=== PATIENT | male | born 1960 | race Caucasian/White ===

== ENCOUNTER 2018-08-29 08:38 | Outpatient (REF) | payer MEDICAID, SELFPAY ==
[2018-08-29 21:03] LABS: ALT 66 U/L (12-78); AST 42 U/L (15-37); Albumin 3.7 g/dL (3.4-5.0); Alkaline Phosphatase 81 U/L (46-116); BUN 22 mg/dL (7-18); Bilirubin, Total 0.7 mg/dL (0.2-1.0); CREATININE 1.01 mg/dL (0.70-1.30); Calcium 8.6 mg/dL (8.5-10.1); Chloride 105 mmol/L (98-107); Cholesterol 251 mg/dL (50-200); Glucose 114 mg/dL (70-100); HDL Cholesterol 37 mg/dL (40-60); LDL CHOLESTEROL 105 mg/dL (<100); Potassium 4.5 mmol/L (3.5-5.1); Sodium 143 mmol/L (136-145); Total Protein 6.9 g/dL (6.4-8.2); Triglyceride 515 mg/dL (30-150)
== END 2018-08-29 08:58 ==
LOC: NCHCN 08:38
PROVIDERS: PCP Specialist/Technologist Athletic Trainer; Visit Provider Specialist/Technologist Athletic Trainer
DX: R79.89 Other specified abnormal findings of blood chemistry (principal); E78.5 Hyperlipidemia, unspecified; I10 Essential (primary) hypertension; R73.01 Impaired fasting glucose; Z00.00 Encounter for general adult medical examination without abnormal findings
CPT/HCPCS: 80053; 80061; 83721

== ENCOUNTER 2019-05-25 17:09 | Emergency (ER) | payer MEDICAID, SELFPAY ==
[2019-05-25 17:17] VITALS: BP 147/79; PULSE 74; RESP 16; TEMP 36.9; O2SAT 97
--- NOTE | 2019-05-25 17:35 | W.ED.GENAD ---
Discharge Plan Disposition Patient Disposition: HOME Condition: Stable Discharge Details Chief Complaint: RashLesion Clinical Impression: Tick-borne disease Primary Care Provider: Dom Dupree ED Provider: Lei Alvarado Home Meds and New Rx's Prescriptions: New doxycycline hyclate 100 mg capsule 100 mg PO BID 20 Days Qty: 40 RF: 0 Discharge Instructions Additional Instructions: Continue your regular medications including metoprolol and statin. Take doxycycline as prescribed for its entire course. As we discussed, this will make you more sensitive to the sun. Follow-up with regular doctor if not improving in 1 week. Return to the ER for any other acute concern. Medical Decision Making 58-year-old male noticed an engorged tick approximately 5 days ago that was removed by his partner. He was seen his primary care physician's office on Wednesday and received 200 mg of doxycycline x1 as prophylaxis for tickborne illness. He now has had a spreading rash around the area of the tick bite and subjective chills. I do feel he ought to be treated for tickborne illness with a full course of doxycycline. I discussed this with the patient and we will proceed. He understands his increased sensitivity to the sun while taking doxycycline, as well as follow-up/return precaution HPI General Mode of arrival: ambulatory. Date/Time Provider Initiated Documentation: 05/25/19 17:11. Limitations to Documentation: no limitations. Information obtained by: patient and family. History of Present Illness 58 year old M presents to the emergency department with the chief complaint of Tick bite and now rash, described as moderate, Quality is described as constant, and is localized to the back. Patient reports no radiation. Patient started experiencing this day(s) and it has been constant. No relieving factors improve symptom(s), No exacerbating factors reported . Patient notes other (Chills). Patient did receive the following treatments prior to arrival, other (Had single doxycycline 200 mg) Related Data Home Medications Medication Instructions Recorded Confirmed doxycycline hyclate 100 mg PO BID 20 Days #40 cap 05/25/19 Previous Rx's Medication Instructions Recorded doxycycline hyclate 100 mg PO BID 20 Days #40 cap 05/25/19 General Stated Complaint: RashLesion MARIA VICTORIA: 4 Review of Systems Review of Systems No other recent illness. Patient has otherwise been well. 6 systems reviewed and neg [facility] Social History Smoking/Tobacco Use Status: Former Tobacco Use Alcohol Intake: current Alcohol Intake frequency: 3 or more drinks per day Substance use type: does not use Do you feel safe at home: Yes Exam Narrative Exam Narrative: GEN: awake, alert, oriented 3. Pleasant, well groomed, interactive. HEAD: Normocephalic, atraumatic ENT: Mucous membranes moist, oropharynx unremarkable, External ear exam unremarkable EYES: PERRL, EOMI NECK: Full ROM, no CRISTINA, no menigismus CHEST/RESP: Nontender, clear to auscultation bilateral, no wheeze/rhonchi/rales CARDIOVASCULAR: RRR, no murmur, rub mery. 2+ Rad pulse bilateral Back: The left posterior thorax has a erythematous blanching rash surrounding area of probable insect bite, no retained foreign body EXT: Full ROM, no edema, no rash Neuro: Grossly normal neurologic exam, conversant, interactive. Psych: Speech fluent, thoughts congruent, affect normal Course Vital Signs Temperature 36.9 C 05/25/19 17:17 Pulse 74 05/25/19 17:17 Respiratory Rate 16 05/25/19 17:17 Blood Pressure 147/79 H 05/25/19 17:17 Pulse Oximetry 97 05/25/19 17:17 Temperature 36.9 C 05/25/19 17:17 Temperature Source Skin 05/25/19 17:17 Pulse 74 05/25/19 17:17 Respiratory Rate 16 05/25/19 17:17 Respiratory Effort 05/25/19 17:17 Blood Pressure 147/79 H 05/25/19 17:17 Blood Pressure Position Sitting 05/25/19 17:17 Pulse Oximetry 97 05/25/19 17:17 Oxygen Delivery Method Room Air 05/25/19 17:17 Oxygen Flow Rate 0 05/25/19 17:17
[2019-05-25] MEDS: Doxycycline Hyclate 100 MG CAP PO (17:44)
[2019-05-25 17:50] VITALS: BP 147/79; PULSE 74; RESP 16; TEMP 36.9; O2SAT 97
== END 2019-05-25 17:50 | disposition home or self-care (01) ==
PROVIDERS: Emergency Provider Emergency Medicine; PCP Physician Assistant Medical
DX: S20.462A Insect bite (nonvenomous) of left back wall of thorax, initial encounter (principal); W57.XXXA Bitten or stung by nonvenomous insect and other nonvenomous arthropods, initial encounter
CPT/HCPCS: 99283

== ENCOUNTER 2019-07-13 11:26 | Outpatient (REF) | payer MEDICAID, SELFPAY ==
[2019-07-13 21:36] LABS: Mean Corp. HGB Concentration 33.3 g/dL (32.0-36.0); Mean Corpuscular Hemoglobin 32.1 pg (27.0-33.0); Mean Corpuscular Volume 96.4 fL (80-95); Mean Platelet Volume 9.7 fL (8.0-11.0); Platelet Count 293 x1000/uL (130-400); RBC 4.67 m/cumm (4.50-6.00); RBC Distribution Width 13.4 % (11.8-14.1); White Blood Cell Count 6.93 k/cumm (4.4-10.8)
[2019-07-13 21:48] LABS: ALT 73 U/L (16-63); AST 44 U/L (15-37); Albumin 3.7 g/dL (3.4-5.0); Alkaline Phosphatase 89 U/L (46-116); Anion Gap 9.2 mmol/L (3-11); BUN 17 mg/dL (7-18); Bilirubin, Total 1.2 mg/dL (0.2-1.0); C-Reactive Protein 0.87 mg/dL (0.0-0.3); CO2 27.8 mmol/L (21.0-32.0); Calcium 8.9 mg/dL (8.5-10.1); Chloride 105 mmol/L (98-107); Glucose 105 mg/dL (70-100); Potassium 4.7 mmol/L (3.5-5.1); Sodium 142 mmol/L (136-145); TSH (W/Ref FT4) 1.62 uIU/mL (0.36-3.74); Total Protein 7.4 g/dL (6.4-8.2); Uric Acid 6.4 mg/dL (3.5-7.2)
[2019-07-16 09:40] LABS: Anaplasma phagocytophilum Negative (Negative); B. miyamotoi PCR Negative (Negative); Babesia divergens/MO-1 Negative (Negative); Babesia duncani Negative (Negative); Babesia microti Negative (Negative); Ehrlichia chaffeensis Negative (Negative); Ehrlichia ewingii/canis Negative (Negative); Ehrlichia muris eauclairensis Negative (Negative)
[2019-07-17 11:07] LABS: Lyme Ab w Rflx to Lyme Confirm Negative
[2019-07-17 11:33] LABS: Hepatitis C Ab w Rflx HCV PCR Negative (NEGAT)
== END 2019-07-13 11:46 ==
LOC: NCHCN 11:26
PROVIDERS: PCP Physician Assistant Medical; Visit Provider Family Medicine
DX: E78.5 Hyperlipidemia, unspecified (principal); I10 Essential (primary) hypertension; R79.89 Other specified abnormal findings of blood chemistry; R61 Generalized hyperhidrosis; M79.676 Pain in unspecified toe(s); W57.XXXA Bitten or stung by nonvenomous insect and other nonvenomous arthropods, initial encounter; T14.8XXA Other injury of unspecified body region, initial encounter; R74.8 Abnormal levels of other serum enzymes; R73.01 Impaired fasting glucose; Z00.00 Encounter for general adult medical examination without abnormal findings
CPT/HCPCS: 80053; 85027; 86803; 87798; 83036; 84443; 84550; 86140; 86618

== ENCOUNTER 2019-08-07 00:25 | Outpatient (CLI) | payer MEDICAID, SELFPAY ==
--- NOTE | 2019-08-07 07:00 | DI.US_ITS ---
EXAM: US ABDOMEN CLINICAL HISTORY: ELEVATED LFT'S,R79.89. TECHNIQUE: Ultrasound performed using standard protocol. FINDINGS: The proximal portion of the aorta is obscured due to bowel gas. Distal abdominal aorta measures 3.2 x 3.7 cm. There is no evidence of dissection. The liver is mildly enlarged and is echogenic consiste nt with fatty infiltration. The gallbladder wall is unremarkable. There are no stones or ductal dila tation. The pancreas is intact. The spleen is top limits of normal in size. The kidneys are unremar kable. There is no evidence of free fluid or an abdominal mass. IMPRESSION: Ectasia of the distal abdominal aorta is demonstrated with a maximal transverse diameter of 3.7 cm. F atty liver is noted.
== END 2019-08-07 00:45 ==
PROVIDERS: PCP Physician Assistant Medical; Visit Provider Physician Assistant Medical
DX: K76.0 Fatty (change of) liver, not elsewhere classified (principal); R79.89 Other specified abnormal findings of blood chemistry; I77.811 Abdominal aortic ectasia
CPT/HCPCS: 76700

== ENCOUNTER 2020-06-25 17:42 | Outpatient (REF) | payer MEDICAID, SELFPAY ==
[2020-06-25 20:37] LABS: Abs Immature Grans 0.04 10^3/uL (0.0-0.06); Absolute Basophil Count 0.04 10^3/uL (0.0-0.2); Absolute Eosinophil Count 0.18 10^3/uL (0.0-0.7); Absolute Lymphocyte Count 0.73 10^3/uL (1.2-3.4); Absolute Monocyte Count 0.46 10^3/uL (0.1-0.8); Basophils % 0.6; Eosinophils % 2.5; HCT 42.8 % (40.0-50.0); HGB 13.7 g/dL (13.5-17.5); Immature Grans % 0.6; Lymphocytes % 10.1; MCH 31.2 pg (27.0-33.0); MCV 97.5 fL (80-95); Monocytes % 6.3; Neutrophils % 79.9; Nucleated RBC 0 %; Platelet Count 306 10^3/uL (130-400); RBC 4.39 10^6/uL (4.36-5.78); RDW 12.8 % (11.8-14.1); RDW-SD 45.5 fL; WBC 7.25 10^3/uL (4.4-10.8)
[2020-06-25 20:55] LABS: ALT 93 U/L (16-63); AST 55 U/L (15-37); Albumin 3.4 g/dL (3.4-5.0); Alkaline Phosphatase 99 U/L (46-116); Anion Gap 8.5 mmol/L (3-11); BUN 22 mg/dL (7-18); Bilirubin, Total 0.7 mg/dL (0.2-1.0); CO2 27.5 mmol/L (21.0-32.0); CREATININE 1.23 mg/dL (0.70-1.30); Calcium 9.1 mg/dL (8.5-10.1); Chloride 106 mmol/L (98-107); Glucose 115 mg/dL (74-106); Potassium 4.5 mmol/L (3.5-5.1); Sodium 142 mmol/L (136-145); Total Protein 6.7 g/dL (6.4-8.2)
[2020-06-25 21:27] LABS: ESR 32 mm/hr (1-20)
[2020-06-27 11:05] LABS: Lyme Ab w Rflx to Lyme Confirm Positive (Negative)
[2020-06-27 19:57] LABS: Anaplasma phagocytophilum Negative (Negative); B. miyamotoi PCR Negative (Negative); Babesia divergens/MO-1 Negative (Negative); Babesia duncani Negative (Negative); Babesia microti Negative (Negative); Ehrlichia chaffeensis Negative (Negative); Ehrlichia ewingii/canis Negative (Negative); Ehrlichia muris eauclairensis Negative (Negative)
[2020-06-28 14:44] LABS: IgG Band(s) p41; IgG Immunoblot Negative (Negative); IgM Band(s) p41; IgM Immunoblot Positive (Negative)
== END 2020-06-25 18:02 ==
LOC: NCHCN 17:42
PROVIDERS: PCP Physician Assistant Medical; Visit Provider Physician Assistant Medical
DX: M25.50 Pain in unspecified joint (principal)
CPT/HCPCS: 80053; 85652; 86617; 87798; 83036; 85025; 86618

== ENCOUNTER 2020-07-30 09:08 | Outpatient (REF) | payer MEDICAID, SELFPAY ==
[2020-08-02 17:34] LABS: Patient Race White; SARS-CoV-2 RNA Undetected (Undetected); SARS-CoV-2 Specimen Source Nasal
== END 2020-07-30 09:28 ==
LOC: NCHCN 09:08
PROVIDERS: PCP Physician Assistant Medical; Visit Provider Physician Assistant Medical
DX: R05 Cough (principal)
CPT/HCPCS: U0003

== ENCOUNTER 2020-08-23 04:06 | Outpatient (CLI) | payer MEDICAID, SELFPAY ==
--- NOTE | 2020-08-23 | DI.US_ITS ---
EXAM: US AAA DIAGNOSTIC CLINICAL HISTORY: F/U AAA,I71.4 TECHNIQUE: Ultrasound performed using standard protocol. COMPARISON: US US ABDOMEN from 08/07/2019 FINDINGS: Limited abdominal ultrasound was performed for evaluation of the abdominal aorta. The proximal aorta is incompletely visualized due to overlying bowel gas. There is an aneurysm which appears to be inf rarenal with maximal dimensions about 33 x 34 millimeters AP and transverse diameter. Right and left common iliac arteries are within normal limits in diameter at 12 and 11 millimeters respectively. No periaortic fluid collection seen. IMPRESSION: 34 millimeter in diameter infrarenal abdominal aortic aneurysm. DATA REPOSITORY:
== END 2020-08-23 04:26 ==
PROVIDERS: PCP Physician Assistant Medical; Visit Provider Physician Assistant Medical
DX: I71.4 Abdominal aortic aneurysm, without rupture (principal)
CPT/HCPCS: 76775

== ENCOUNTER 2020-09-13 08:37 | Outpatient (REF) | payer MEDICAID, SELFPAY ==
[2020-09-13 19:35] LABS: ALT 59 U/L (16-63); AST 31 U/L (15-37); Albumin 3.7 g/dL (3.4-5.0); Alkaline Phosphatase 84 U/L (46-116); Anion Gap 8.8 mmol/L (3-11); BUN 23 mg/dL (7-18); Bilirubin, Total 0.7 mg/dL (0.2-1.0); CO2 28.2 mmol/L (21.0-32.0); CREATININE 1.07 mg/dL (0.70-1.30); Calculated LDL 130 mg/dL (<100); Chloride 102 mmol/L (98-107); Cholesterol 225 mg/dL (<200); Glucose 114 mg/dL (74-106); HDL Cholesterol 55 mg/dL (40-60); Sodium 139 mmol/L (136-145); Total Protein 7.5 g/dL (6.4-8.2); Triglyceride 201 mg/dL (<150)
== END 2020-09-13 08:57 ==
LOC: NCHCN 08:37
PROVIDERS: PCP Physician Assistant Medical; Visit Provider Physician Assistant Medical
DX: R79.89 Other specified abnormal findings of blood chemistry (principal); J44.9 Chronic obstructive pulmonary disease, unspecified; R73.01 Impaired fasting glucose; E78.5 Hyperlipidemia, unspecified
CPT/HCPCS: 80053; 80061; 83036

== ENCOUNTER 2020-10-02 20:13 | Outpatient (REF) | payer MEDICAID, SELFPAY ==
[2020-10-02 20:27] LABS: Anion Gap 7.7 mmol/L (3-11); BUN 26 mg/dL (7-18); CO2 26.3 mmol/L (21.0-32.0); CREATININE 1.06 mg/dL (0.70-1.30); Calcium 9.1 mg/dL (8.5-10.1); Chloride 104 mmol/L (98-107); Glucose 102 mg/dL (74-106); Potassium 4.3 mmol/L (3.5-5.1); Sodium 138 mmol/L (136-145)
== END 2020-10-02 20:33 ==
LOC: NCHCN 20:13
PROVIDERS: PCP Physician Assistant Medical; Visit Provider Physician Assistant Medical
DX: I10 Essential (primary) hypertension (principal)
CPT/HCPCS: 80048

== ENCOUNTER 2021-01-15 07:24 | Day surgery (SDC) | payer MEDICAID, SELFPAY ==
--- NOTE | 2021-01-15 06:43 | W.PREOPHP ---
Date of service: 01/15/21 Time of Service: 08:24 Assessment and Plan Assessment and plan (1) Encounter for screening colonoscopy: Status: Acute Assessment and plan: The patient is here for Colonoscopy pre-op. His last screening was in 2009 and was unremarkable. He has no family history of colon cancer. He has not had any bowel habit changes. -Discussed colonoscopy bowel prep as well as the procedure. Discussed possible complications of the procedure to include bleeding, pain, perforation, missed small lesion/polyp, sore throat, aspiration and adverse reaction to the medications. Questions were answered to patient?s satisfaction. No guarantees were implied or given. History of Present Illness Narrative: 60 y/o male with history of ETOH abuse, infrarenal AAA (34mm) and HTN presents for colonoscopy screening pre-op. His last screening was in 2009, which was unremarkable. He denies a family history of colon cancer. He denies any changes in bowel habits including bloody or black tarry stools, abdominal pain, diarrhea or constipation. He denies constitutional symptoms. Denies use of marijuana or any other recreational or illegal drugs. He denies chest pain, palpitations, dyspnea or dyspnea with exertion. Uses his inhaler once a day, with good effect. 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 He denies prior history or family history of adverse reactions or complications with anesthesia. The patient denies any history of stroke, [place], seizures, bleeding or clotting disorders. He denies having any implanted metal in his body. Patient describes significant stressors in his personal life. One of his daughters is fighting addiction and he and his currently are fostering 2 of their grandchildren ages 13 y/o and 19 months. They are currently going through court hearings regarding whether the children will return to the home of his daughter, which is weighing on him. There have been no changes in his health since he was seen in the office Review of Systems Constitutional Constitutional: Denies fever(s), Denies headache(s) and Denies weight loss Eyes Eyes: Denies change in vision ENT Ears, Nose, Mouth, and Throat: Denies change in voice and Denies headache(s) Cardiovascular Cardiovascular: Denies chest pain, Denies chest pain at rest, Denies irregular heart rhythm, Denies dyspnea and Denies dyspnea on exertion Respiratory Respiratory: Denies cough, Denies dyspnea and Denies dyspnea on exertion Gastrointestinal Gastrointestinal: Reports as per HPI Genitourinary Genitourinary: Denies dysuria, Denies urinary incontinence and Denies urinary urgency Neurologic Neurologic: Denies headache(s) Endocrine Endocrine: Reports system reviewed and no additional complaints, except as documented Hematologic/Lymphatic Hematologic/Lymphatic: Denies easy bruising and Denies lymphadenopathy [facility] Medical History AAA (abdominal aortic aneurysm) recent US- 3.3 cm infrarenal Chronic rhinitis COPD (chronic obstructive pulmonary disease) Cough Elevated LFTs ETOH abuse Family history of substance abuse Hyperlipidemia Hypertension Impaired fasting glucose Lyme disease Medial epicondylitis of right elbow Shoulder pain, bilateral Surgical History S/P colonoscopy (~2009) S/P left knee arthroscopy Social History Smoking/Tobacco Use Status: Former Tobacco Use Quit Date: 11/15/12 Smoking risk assessment performed?: Yes Alcohol Intake: current Alcohol Intake frequency: 3 or more drinks per day Alcohol type: hard liquor Counseling given: Yes Counseling provided: provider counseling Substance use type: does not use Details: alcohol: t-2, 3 drinks Do you feel safe at home: Yes Do you feel safe in your relationship?: Yes Meds Home Medications and Allergies Allergies Allergy/AdvReac Type Severity Reaction Status Date / Time No Known Allergies Allergy Verified 01/15/21 07:42 Home Medications Medication Instructions Recorded Confirmed Type albuterol sulfate 90 mcg/actuation 2 inh INHALATION Q6H 09/06/20 01/14/21 History breath activated powder inhaler,sensor aspirin 81 mg tablet,delayed 81 mg PO DAILY 09/06/20 01/15/21 History release atorvastatin 40 mg tablet 40 mg PO QHS 09/06/20 01/15/21 History indomethacin 25 mg capsule 25 mg PO TID 09/06/20 01/15/21 History metoprolol succinate 50 mg 50 mg PO DAILY 09/06/20 01/15/21 History tablet,extended release 24 hr naloxone 4 mg/actuation nasal spray 4 mg INTRANASAL Q2M PRN 09/06/20 01/15/21 History bisacodyl 5 mg tablet,delayed 5 mg PO ONCE #4 tab 12/06/20 01/15/21 Rx release polyethylene glycol 3350 17 238 g PO ONCE #238 g 12/06/20 01/15/21 Rx gram/dose oral powder melatonin 10 mg PO HS 01/14/21 01/15/21 History Exam Resp Effort & Inspection: normal respiratory effort Auscultation: clear to auscultation bilaterally Cardio Rate: regular rate Rhythm: regular rhythm Heart Sounds: no gallops, no murmurs and no rubs GI Palpation: soft and nontender
--- NOTE | 2021-01-15 06:50 | W.COLOREPORT ---
Date of service: 01/15/21 Time of Service: 09:01 Colonoscopy Report Date of procedure: 01/15/21 Pre-op diagnosis general: Colon Cancer Screening Post-op diagnosis procedure note: other (polyp) Procedure: Colonoscopy with polypectomy Surgeon: Louise Sanford Anesthesia proc note operative: other (General/ ASA 2/Anjum Acevedo CRNA) Estimated blood loss (mL): 3 Pathology: other (descending colon polyp) Complications: None Disposition: same day Indications: The patient is here for Colonoscopy pre-op. His last screening was in 2009 and was unremarkable. He has no family history of colon cancer. He has not had any bowel habit changes. -Discussed colonoscopy bowel prep as well as the procedure. Discussed possible complications of the procedure to include bleeding, pain, perforation, missed small lesion/polyp, sore throat, aspiration and adverse reaction to the medications. Questions were answered to patient?s satisfaction. No guarantees were implied or given. Prep: Miralax/Dulcolax Procedure Start Time: 08:33 Procedure End Time: 08:55 Retraction Time: 17 minutes Findings: One small polyp in the descending colon. (<1 cm) Procedure Description: After informed consent was obtained the patient was taken to the procedure room and placed in a left decubitous position. Monitors were applied and a time out was done. The patients name, date of , procedure, allergies to medications and metal in their body was reviewed. The patient was then sedated. Once sedated and comfortable a rectal exam was done. External exam was normal. Internal exam revealed a normal sphincter tone and no palpable masses. The prostate felt smooth. The scope was then introduced and retro-flexed. No internal hemorrhoids, polyps or masses were identified on retro-flexion. The scope was then advanced to the cecum without difficulty. The ileocecal valve and appendiceal orifice were identified. The prep was adequate. The scope was then slowly retracted over 17 minutes back into the rectum. Polyps were removed with cold forceps in the descending colon. There was no diverticulosis noted. The scope was removed and the patient was woken up and taken back to Same day surgery in stable condition. The patient tolerated the procedure well and there were no immediate complications. Follow up: The patient should follow up in 5 years unless they develop changes in bowel habits or other new gastrointestinal complaints.
[2021-01-15 07:38] VITALS: BP 106/72; PULSE 99; RESP 18; TEMP 36.9; O2SAT 98
[2021-01-15] MEDS: Lactated Ringers 1,000 ML 80 ML IV (08:00)
--- NOTE | 2021-01-15 08:24 | W.PM.DSUDISC ---
Discharge Plan Disposition Patient Disposition: HOME Condition: Good Discharge Details Reason For Visit: Colonoscopy Attending Provider: Louise Sanford Primary Care Provider: Dom Dupree Home Meds and New Rx's Prescriptions: Continued indomethacin 25 mg capsule 25 mg PO TID RF: 0 aspirin [Adult Aspirin Regimen] 81 mg tablet,delayed release (DR/EC) 81 mg PO DAILY RF: 0 metoprolol succinate 50 mg tablet extended release 24 hr 50 mg PO DAILY RF: 0 atorvastatin [Lipitor] 40 mg tablet 40 mg PO QHS RF: 0 Proair Digihaler 90 mcg/actuation aero powdr breath act w/sensor 2 inh inhalation Q6H RF: 0 Narcan 4 mg/actuation spray,non-aerosol 4 mg intranasal Q2M PRNRF: 0 melatonin 10 mg Tablet 10 mg PO HS RF: 0 Discontinued polyethylene glycol 3350 17 gram/dose powder 238 g PO ONCE Qty: 238 RF: 0 bisacodyl [Dulcolax (bisacodyl)] 5 mg tablet,delayed release (DR/EC) 5 mg PO ONCE Qty: 4 RF: 0 Discharge Instructions Instructions: Colorectal Polyps (DC) Additional Instructions: Findings: 1 small polyp Follow up: 5 years Please call if you develop: fevers >101.5 Nausea or Vomiting Abdominal pain that is not transient DAY SURGERY UNIT POST ENDOSCOPY INSTRUCTIONS 1. Because there will be medication in your system for the next 24 hours, you may feel a little sleepy. Your coordination will be affected. Therefore: a. Do not drive or operate dangerous equipment for 24 hours. b. Do not drink alcohol beverages for 24 hours (not even beer). c. Plan to go home and rest for the day. 2. Generally there are no restrictions on your activity after a day or so has gone by, but you may feel a bit fatigued for a few days. 3 After you arrive home you may have a light meal and return to a normal diet as you can tolerate it without feeling sick to your stomach. 4. After surgery, you may feel pain or discomfort. This should be only transient, but if it persists please contact your doctor. 5. If there are any questions regarding the findings of your procedure, please feel free to contact your doctor. 6. If you are unable to contact your doctor with a problem, contact the hospital at [phone]. 7. Continue all your regular medications unless directed otherwise. I understand the above instructions and have no questions. Signature of Patient or Responsible Adult Escort Date/Time Name of Responsible Adult Escort Signature of Nurse Date/Time Activity:: Activity as Tolerated Diet:: As Tolerated Discharge Orders Discharge Orders: Discharge Order (Routine); Ordered 01/15/21 Ordered By: Louise Sanford DS: Diagnosis Discharge Diagnosis (1) Encounter for screening colonoscopy: Status: Acute
--- NOTE | 2021-01-15 08:49 | BOWEL_PTH ---
PATIENT: Tristan Yan LOC: [facility] U#:[id number] AGE/SX: 60/M ROOM: RE01/15/[address]: Louise Sanford MD : 1960 BED: DIS: 01/15/2021 SPEC #: [id number] RECD: 01/15/21 12:54 STATUS: TRISHA REMary #: [id number] ETHAN: 01/15/21 08:[address]: Louise Sanford DEPT: Surgical Specimen RECD BY: Emelina Estrada ENTERED: 01/15/21 12:54 SP TYPE: Bowel OTHR DR: Dom Dupree Tissues: 1 - BIOPSY BOWEL Procedures: GROSS AND MICRO LEVEL 4 Comments: [id number]
[2021-01-15 09:25] VITALS: BP 106/69; PULSE 84; RESP 18; TEMP 36.1; O2SAT 97
== END 2021-01-15 09:43 | disposition home or self-care (01) ==
PROVIDERS: PCP Physician Assistant Medical; Visit Provider Surgery
PROC: 0DJD8ZZ Inspection of Lower Intestinal Tract, Via Natural or Artificial Opening Endoscopic (ICD-10-PCS; CPT 45378; principal; 2021-01-15 09:15)
DX: Z12.11 Encounter for screening for malignant neoplasm of colon (principal); D12.4 Benign neoplasm of descending colon; I10 Essential (primary) hypertension; J44.9 Chronic obstructive pulmonary disease, unspecified; F10.10 Alcohol abuse, uncomplicated
CPT/HCPCS: 45380; 88305; NC; J2001

== ENCOUNTER 2021-08-28 16:13 | Outpatient (REF) | payer MEDICAID, SELFPAY ==
[2021-08-28 20:45] LABS: Abs Immature Grans 0.06 10^3/uL (0.0-0.06); Absolute Basophil Count 0.07 10^3/uL (0.0-0.2); Absolute Eosinophil Count 0.19 10^3/uL (0.0-0.7); Absolute Lymphocyte Count 1.78 10^3/uL (1.2-3.4); Absolute Monocyte Count 0.78 10^3/uL (0.1-0.8); Absolute Neutrophil Count 6.03 10^3/uL (1.2-6.7); Basophils % 0.8; Eosinophils % 2.1; HCT 38.6 % (40.0-50.0); HGB 12.3 g/dL (13.5-17.5); Immature Grans % 0.7; MCH 31.7 pg (27.0-33.0); MCHC 31.9 % (32.0-36.0); MCV 99.5 fL (80-95); MPV 9.4 fL (8.0-11.0); Monocytes % 8.8; Neutrophils % 67.6; Nucleated RBC 0 %; Platelet Count 272 10^3/uL (130-400); RBC 3.88 10^6/uL (4.36-5.78); RDW 14.3 % (11.8-14.1); RDW-SD 52.1 fL; WBC 8.91 10^3/uL (4.4-10.8)
[2021-08-28 21:05] LABS: ALT 101 U/L (16-63); AST 54 U/L (15-37); Albumin 3.6 g/dL (3.4-5.0); Alkaline Phosphatase 84 U/L (46-116); Anion Gap 8.7 mmol/L (3-11); BUN 51 mg/dL (7-18); Bilirubin, Total 0.7 mg/dL (0.2-1.0); CO2 25.3 mmol/L (21.0-32.0); CREATININE 3.1 mg/dL (0.70-1.30); Calcium 9.1 mg/dL (8.5-10.1); Chloride 110 mmol/L (98-107); Estimated GFR 20.52 (mL/min/1.73m2); Glucose 125 mg/dL (74-106); Potassium 5.1 mmol/L (3.5-5.1); Sodium 144 mmol/L (136-145)
== END 2021-08-28 16:14 | disposition home or self-care (01) ==
LOC: LBN 16:13
PROVIDERS: PCP Physician Assistant Medical; Visit Provider Physician Assistant Medical
DX: R19.7 Diarrhea, unspecified (principal)
CPT/HCPCS: 80053; 85025

== ENCOUNTER 2021-08-29 08:24 | Outpatient (REF) | payer MEDICAID, SELFPAY ==
[2021-08-29 22:59] LABS: Campylobacter PCR Negative (Negative); Salmonella PCR Negative (Negative); Shiga Toxin PCR Negative (Negative); Shigella/Enteroinvasive Ecoli Negative (Negative)
== END 2021-08-29 08:25 | disposition home or self-care (01) ==
LOC: LBN 08:24
PROVIDERS: PCP Physician Assistant Medical; Visit Provider Physician Assistant Medical
DX: R19.7 Diarrhea, unspecified (principal)
CPT/HCPCS: 87329; 87493; 87505; 83630; 87177

== ENCOUNTER 2021-08-29 10:52 | Emergency (ER) | payer MEDICAID, SELFPAY ==
[2021-08-29] VITALS (39 sets, daily range): BP systolic 120–145; BP diastolic 26–101; PULSE 64–83; RESP 14–25; TEMP 36.7–36.8; O2SAT 97–100
--- NOTE | 2021-08-29 11:33 | DI.CT_ITS ---
Exam(s) CT ABDOMEN PELVIS WO EXAM: CT ABDOMEN PELVIS WO CLINICAL HISTORY: renal failure, abdominal pain. TECHNIQUE: Imaging Protocol: Axial computed tomography images with coronal and sagittal reformatted images were created and reviewed. Oral: no COMPARISON: US US AAA DIAGNOSTIC from 08/23/2020 US US AAA DIAGNOSTIC from 08/23/2020 FINDINGS: ABDOMEN: Lung Bases: Normal where visualized. Coronary artery calcifications. Liver: Normal density. No measurable mass. Gallbladder and biliary tract: No radiodense calculus or dilation. Pancreas: Normal density, no abnormal calcifications or inflammatory process. Spleen: Normal. Kidneys: Normal size, contour and axis. No radiodense stones or obstructive uropathy. No masses seen. Adrenal glands: No masses seen. Lymph nodes: Within normal limits. Abdominal Aorta: 3.8 cm aneurysm, stable. PELVIS: Bladder: Nearly empty, not well evaluated. Bowel: Appendix normal. No obstruction or bowel wall thickening. Normal quantity of stool. Peritoneal cavity: No ascites, collection or mesenteric inflammatory response. Reproductive organs: Within normal limits. Bones: Unremarkable for age. IMPRESSION: Unremarkable noncontrast CT scan of the abdomen and pelvis. RADIATION DOSE DELIVERED: 1,176.11mGy.cm Total DLP DATA REPOSITORY: All CT scans at this facility are submitted to the National Radiology Data Registry (NRDR) Dose Index Registry (DIR) with the [employer] (A[employer]). RADIATION OPTIMIZATION: All CT scans at this facility use at least one of these dose optimization te chniques: automated exposure control; mA and/or kV adjustment per patient size (includes targeted exa ms where dose is matched to clinical indication); or iterative reconstruction.
[2021-08-29 11:51] LABS: Abs Immature Grans 0.04 10^3/uL (0.0-0.06); Absolute Basophil Count 0.05 10^3/uL (0.0-0.2); Absolute Eosinophil Count 0.22 10^3/uL (0.0-0.7); Absolute Lymphocyte Count 1.75 10^3/uL (1.2-3.4); Absolute Monocyte Count 0.72 10^3/uL (0.1-0.8); Absolute Neutrophil Count 5.41 10^3/uL (1.2-6.7); Basophils % 0.6; Eosinophils % 2.7; HCT 38.9 % (40.0-50.0); HGB 12.5 g/dL (13.5-17.5); Immature Grans % 0.5; Lymphocytes % 21.4; MCH 32.1 pg (27.0-33.0); MCHC 32.1 % (32.0-36.0); MPV 8.8 fL (8.0-11.0); Monocytes % 8.8; Nucleated RBC 0 %; Platelet Count 257 10^3/uL (130-400); RBC 3.89 10^6/uL (4.36-5.78); RDW 14.3 % (11.8-14.1); RDW-SD 52.2 fL; WBC 8.19 10^3/uL (4.4-10.8)
[2021-08-29] MEDS: Normal Saline 1,000 ML 1000 ML IV ×2 (11:55→13:57)
[2021-08-29 11:59] LABS: Bilirubin Negative (Negative); Blood Negative (Negative); Clarity Clear (Clear); Glucose 100 mg/dL (Negative); Ketones Negative (Negative); Leukocyte Esterase Negative (Negative); Nitrite Negative (Negative); Specific Gravity >= 1.030 (1.005-1.025); Urobilinogen 0.2 EU/dL (Up TO 0.2); pH 5.5 (5-8)
[2021-08-29 12:08] LABS: Bacteria Negative HPF (Negative); C & S Indicated? No; Crystals Few Calcium Oxalate HPF (Negative); Epithelial Cells Few HPF (Negative); Mucus Trace (Negative); RBC Negative HPF (0-2); WBC Negative HPF (0-5)
--- NOTE | 2021-08-29 12:30 | RT.EKG_ITS ---
APPROVED REPORT Exam: Resting ECG Reason for Exam: hyperkalemia Patient Location: E HR:67 bpm ECG Measurements Heart Rate 67 AXIS MA 156 P 17 QRSd 87 QRS 28 QT 383 T 33 QTc 405 Conclusion Sinus rhythm...normal P axis, V-rate 60- 99 peaked Ts
[2021-08-29 12:37] LABS: ALT 82 U/L (16-63); AST 43 U/L (15-37); Alkaline Phosphatase 76 U/L (46-116); BUN 51 mg/dL (7-18); Bilirubin, Total 0.7 mg/dL (0.2-1.0); CREATININE 2.2 mg/dL (0.70-1.30); Calcium 8.2 mg/dL (8.5-10.1); Chloride 110 mmol/L (98-107); Creatine Kinase 74 U/L (39-308); Estimated GFR 30.48 (mL/min/1.73m2); Glucose 96 mg/dL (74-106); Magnesium 2.1 mg/dL (1.8-2.4); Potassium 5.7 mmol/L (3.5-5.1); Sodium 142 mmol/L (136-145); Total Protein 6.5 g/dL (6.4-8.2)
--- NOTE | 2021-08-29 13:42 | W.ED.GENAD ---
Discharge Plan Disposition Patient Disposition: HOME Condition: Improving Discharge Details Clinical Impression: Diarrhea, Hyperkalemia, Acute kidney injury Primary Care Provider: Dom Dupree ED Provider: Marivel Bobby Home Meds and New Rx's Prescriptions: New dicyclomine 20 mg tablet 20 mg PO QID Qty: 14 RF: 0 Continued indomethacin 25 mg capsule 25 mg PO TID RF: 0 aspirin [Adult Aspirin Regimen] 81 mg tablet,delayed release (DR/EC) 81 mg PO DAILY RF: 0 metoprolol succinate 50 mg tablet extended release 24 hr 50 mg PO DAILY RF: 0 atorvastatin [Lipitor] 40 mg tablet 40 mg PO QHS RF: 0 Proair Digihaler 90 mcg/actuation aero powdr breath act w/sensor 2 inh inhalation Q6H RF: 0 Narcan 4 mg/actuation spray,non-aerosol 4 mg intranasal Q2M PRNRF: 0 melatonin 10 mg Tablet 10 mg PO HS RF: 0 Discharge Instructions Instructions: Acute Diarrhea (ED) Additional Instructions: Your labs are improving today. Please continue to encourage hydration. Please stick with a easy digest liquid diet for the time being. I would like you to follow-up with your primary care and have repeat labs on Wednesday. Call Wednesday morning to schedule follow-up appointment. I prescribed Bentyl to help with your recurrent diarrhea and cramping. Please take as prescribed, this has been sent to your pharmacy. If you develop fever/chills, increased pain, inability stay hydrated, or other new/worsening symptoms please seek care urgently once again. Referrals: Dom Dupree PA [Primary Care Provider] - Discharge Data Discharge Date/Time-TO BE ENTERED AT DEPARTURE: 08/29/21 18:00 Medical Decision Making <ANAM Garcia - Last Filed: 08/30/21 16:53> Patient appears well, he is alert and oriented, his vitals are stable He does of hyper T waves on EKG His potassium is 5.7 and his creatinine is 2.2, creatinine decreased from 3.1 yesterday Potassium increased to 5.[address] David's of abdomen and pelvis not show acute abnormality Patient was given IV calcium gluconate, IV insulin, and has had repeat glucose test since that time of all been within normal limits I did discuss the case with the hospitalist to admit the patient, however Dr. Mehta asked that we please repeat a BMP as she does not feel this patient warrants admission at this time unless his labs do not correct She will be transferred to Marivel Bobby PA-C pending repeat BMP at 1600 and repeat EKG Patient has formed stool on his stool specimen that she submitted prior to emergency room evaluation therefore C. difficile was not ordered, the remainder of his testing is pending Medical Records Medical records reviewed: Yes I reviewed the patient's medical records. Lab Data Lab results reviewed: Yes I reviewed the patient's lab results. <ANAM Zuluaga - Last Filed: 08/29/21 17:42> Care transition myself from Emelina Martell PA-C. Please see her initial note regarding history, presentation and exam. In brief, patient is a pleasant 61-year-old male presenting today after having intermittent diarrhea x1 month. Patient was seen in urgent care yesterday at which time he was found to have an acute kidney injury. At the time he came in earlier today, patient potassium was elevated at 5.7 and he did have hyperacute T waves on his initial EKG. His initial creatinine was 2.2. Plan initially was for admission. However, after further consultation they decided to hold off on admission for this time, hydrate the patient, treat the hyperkalemia and reassess. If labs are improving, plan is for patient to be discharged home with close follow-up. At the time I assumed care, BMP pending. Repeat BMP reviewed by myself. Potassium normal at 4.5. Creatinine is improving at 1.9. Patient continues to be asymptomatic. Discussed the findings with the patient. As his primary concern seems to be this intermittent diarrhea and intermittent cramping, will treat with Bentyl. Advised they continue to encourage hydration. I have asked that he stick with a liquid diet to try and allow for some rest of his bowels. He has not had any bowel movements since being here. Has not had any cramping since being here. Patient is questioning if some of this may be associated with increased stress at home and at work. Strict return precautions were discussed. Patient is in agreement with discharge home, feels safe being at home and following this plan. I advised that they contact primary care Wednesday morning to schedule repeat labs for Wednesday as well as reevaluation Wednesday or Wednesday. All other questions and concerns were addressed in agreement this plan. HPI <ANAM Garcia - Last Filed: 08/30/21 16:53> General Mode of arrival: ambulatory. Date/Time Provider Initiated Documentation: 08/29/21 11:04. Limitations to Documentation: no limitations. Information obtained by: patient. HPI Narrative: This 61-year-old male presents with reports cramping in his abdomen and lower extremities with diarrhea for the past month. He states he is having 5-6 episodes of diarrhea daily. He denies any blood in the stool. He states he was on antibiotics at the beginning of spring secondary to current line but denies any antibiotic at that time. He denies any self or sick contacts. He denies recent camping. He denies any chest pain or shortness of breath. He denies dizziness or weakness. He did drop off a stool this morning. He otherwise feels quite well. He does drink nightly 8 ounces of vodka daily denies history of withdrawals. He also has a active job and drinks only 1-2 daily. Denies history of similar symptoms in the past. Related Data Home Medications Medication Instructions Recorded Confirmed albuterol sulfate 90 mcg/actuation 2 inh INHALATION Q6H 09/06/20 08/29/21 breath activated powder inhaler,sensor aspirin 81 mg tablet,delayed 81 mg PO DAILY 09/06/20 08/29/21 release atorvastatin 40 mg tablet 40 mg PO QHS 09/06/20 08/29/21 indomethacin 25 mg capsule 25 mg PO TID 09/06/20 08/29/21 metoprolol succinate 50 mg 50 mg PO DAILY 09/06/20 08/29/21 tablet,extended release 24 hr naloxone 4 mg/actuation nasal spray 4 mg INTRANASAL Q2M PRN 09/06/20 01/15/21 melatonin 10 mg PO HS 01/14/21 01/15/21 dicyclomine 20 mg PO QID #14 tab 08/29/21 Previous Rx's Medication Instructions Recorded dicyclomine 20 mg PO QID #14 tab 08/29/21 Allergies Allergy/AdvReac Type Severity Reaction Status Date / Time No Known Allergies Allergy Verified 08/29/21 11:03 General Stated Complaint: GenMedical MARIA VICTORIA: 3 Review of Systems <ANAM Garcia - Last Filed: 08/30/21 16:53> All systems reviewed & are unremarkable except as noted in HPI and below PFSH <ANAM Garcia - Last Filed: 08/30/21 16:53> Medical History AAA (abdominal aortic aneurysm) recent US- 3.3 cm infrarenal Chronic rhinitis COPD (chronic obstructive pulmonary disease) Cough Elevated LFTs ETOH abuse Family history of substance abuse Hyperlipidemia Hypertension Impaired fasting glucose Lyme disease Medial epicondylitis of right elbow Shoulder pain, bilateral Surgical History S/P colonoscopy (~2009) S/P left knee arthroscopy Social History Smoking/Tobacco Use Status: Former Tobacco Use Quit Date: 11/15/12 Smoking risk assessment performed?: Yes Alcohol Intake: current Alcohol Intake frequency: 3 or more drinks per day Alcohol type: hard liquor Counseling given: Yes Counseling provided: provider counseling Substance use type: does not use Details: alcohol: t-2, 3 drinks Do you feel safe at home: Yes Do you feel safe in your relationship?: Yes Exam <ANAM Garcia - Last Filed: 08/30/21 16:53> Const General: cooperative and comfortable HENMT Throat: posterior oropharynx normal Other: Moist mucous membrane Eyes Pupils: PERRL Chest Chest: normal inspection of the chest Resp Effort & Inspection: normal respiratory effort Cardio Rate: regular rate Rhythm: regular rhythm GI Other: No CVA tenderness tenderness, nondistended, no abdominal tenderness Skin General skin exam: no rashes or lesions noted Neuro General: patient alert and patient oriented x3 Psych Speech and Movement: speech and movement normal Course <ANAM Garcia Last Filed: 08/30/21 16:53> Vital Signs Vital signs: Vital Signs Temperature 36.7 C 08/29/21 10:59 Pulse 74 08/29/21 10:59 Respiratory Rate 16 08/29/21 10:59 Blood Pressure 120/68 08/29/21 10:59 Pulse Oximetry 98 08/29/21 10:59 Temperature 36.7 C 08/29/21 10:59 Pulse 74 08/29/21 10:59 Respiratory Rate 16 08/29/21 12:47 Respiratory Effort 08/29/21 12:47 Respiratory Depth Normal 08/29/21 12:47 Respiratory Pattern Normal 08/29/21 12:47 Blood Pressure 120/68 08/29/21 10:59 Pulse Oximetry 98 08/29/21 10:59 Pain Level 8 08/29/21 10:59 Lab/Test Results Lab/Test Results: Laboratory Tests Range/Units 08/29/21 08/29/21 08/29/21 11:40 11:45 11:45 WBC (4.4-10.8) 10^3/uL 8.19 RBC (4.36-5.78) 10^6/uL 3.89 L Hgb (13.5-17.5) g/dL 12.5 L Hct (40.0-50.0) % 38.9 L MCV (80-95) fL 100.0 H MCH (27.0-33.0) pg 32.1 MCHC (32.0-36.0) % 32.1 RDW (11.8-14.1) % 14.3 H Plt Count (130-400) 10^3/uL 257 MPV (8.0-11.0) fL 8.8 Immature Gran % 0.5 Neutrophils % 66.0 Lymphocytes % 21.4 Monocytes % 8.8 Eosinophils % 2.7 Basophils % 0.6 Nucleated RBC % % 0 Absolute Neutrophils (1.2-6.7) 10^3/uL 5.41 Absolute Lymphocytes (1.2-3.4) 10^3/uL 1.75 Absolute Monocytes (0.1-0.8) 10^3/uL 0.72 Absolute Eosinophils (0.0-0.7) 10^3/uL 0.22 Absolute Basophils (0.0-0.2) 10^3/uL 0.05 Sodium Cancelled Potassium Cancelled Chloride Cancelled Carbon Dioxide Cancelled Anion Gap Cancelled BUN Cancelled Creatinine Cancelled Estimated GFR/1.73 m2 Cancelled Glucose Cancelled Calcium Cancelled Magnesium Total Bilirubin Cancelled AST Cancelled ALT Cancelled Alkaline Phosphatase Cancelled Creatine Kinase Cancelled Total Protein Cancelled Albumin Cancelled Urine Color (Yellow) Yellow Urine Clarity (Clear) Clear Urine pH (5-8) 5.5 Ur Specific [place] (1.005-1.025) >= 1.030 H Urine Protein (Negative) mg/dL Trace H Urine Ketones (Negative) mg/dL Negative Urine Blood (Negative) Negative Urine Nitrite (Negative) Negative Urine Bilirubin (Negative) Negative Urine Urobilinogen (Up TO 0.2) EU/dL 0.2 Ur Leukocyte Esterase (Negative) Negative Urine RBC (0-2) HPF Negative Urine WBC (0-5) HPF Negative Ur Epithelial Cells (Negative) HPF Few Urine Crystals (Negative) HPF Few Calcium Oxalate Urine Bacteria (Negative) HPF Negative Urine Casts (Negative) LPF >50 Hyaline Urine Mucus (Negative) Trace Ur Culture Indicated? No Urine Glucose (Negative) mg/dL 100 Range/Units 08/29/21 08/29/21 11:45 12:18 WBC (4.4-10.8) 10^3/uL RBC (4.36-5.78) 10^6/uL Hgb (13.5-17.5) g/dL Hct (40.0-50.0) % MCV (80-95) fL MCH (27.0-33.0) pg MCHC (32.0-36.0) % RDW (11.8-14.1) % Plt Count (130-400) 10^3/uL MPV (8.0-11.0) fL Immature Gran % Neutrophils % Lymphocytes % Monocytes % Eosinophils % Basophils % Nucleated RBC % % Absolute Neutrophils (1.2-6.7) 10^3/uL Absolute Lymphocytes (1.2-3.4) 10^3/uL Absolute Monocytes (0.1-0.8) 10^3/uL Absolute Eosinophils (0.0-0.7) 10^3/uL Absolute Basophils (0.0-0.2) 10^3/uL Sodium 142 Potassium 5.7 H Chloride 110 H Carbon Dioxide 25.0 Anion Gap 7.0 BUN 51 H Creatinine 2.2 H D Estimated GFR/1.73 m2 30.48 Glucose 96 Calcium 8.2 L Magnesium Cancelled 2.1 Total Bilirubin 0.7 AST 43 H ALT 82 H Alkaline Phosphatase 76 Creatine Kinase 74 Total Protein 6.5 Albumin 3.0 L Urine Color (Yellow) Urine Clarity (Clear) Urine pH (5-8) Ur Specific [place] (1.005-1.025) Urine Protein (Negative) mg/dL Urine Ketones (Negative) mg/dL Urine Blood (Negative) Urine Nitrite (Negative) Urine Bilirubin (Negative) Urine Urobilinogen (Up TO 0.2) EU/dL Ur Leukocyte Esterase (Negative) Urine RBC (0-2) HPF Urine WBC (0-5) HPF Ur Epithelial Cells (Negative) HPF Urine Crystals (Negative) HPF Urine Bacteria (Negative) HPF Urine Casts (Negative) LPF Urine Mucus (Negative) Ur Culture Indicated? Urine Glucose (Negative) mg/dL Critical Care Time <ANAM Garcia - Last Filed: 08/30/21 16:53> Critical Care Time Critical Care Time: Yes Total Critical Care Time: 60 Attestation: IV calcium, IV insulin, telemetry monitoring, repeat diagnostic labs and possible admission Sign Out <ANAM Garcia - Last Filed: 08/30/21 16:53> Sign Out Data: Sign Out Comment: pending bmp, ekg, disp Last updated by Emelina Martell PA at 08/29/21 16:08 PAWSS <ANAM Garcia - Last Filed: 08/30/21 16:53> Have you Been Recently Intoxicated or Drunk Within the Last 30 days?: Yes Have you Ever Experienced Previous Episodes of Alcohol Withdrawal?: No Have you ever Experienced Withdrawal Seizures?: No Have you ever Experienced Delirium Tremens(DT)s?: No Have you ever undergone Alcohol Rehabilitation Treatment (i.e, inpt ot outpatient treatment programs)?: No Have you ever Experienced Blackouts?: No Have you ever Combined Alcohol with other Downers within the last 90 days?: No Have you ever Combined Alcohol with any other Substance of Abuse during the last 90 days?: No Positive Blood Alcohol level on Presentation? [PCS.BAL]: No Evidence of Increased Autonomic Activity (i.e. HR>120, tremor, sweating, agitation, nausea)?: No Result: 1
--- NOTE | 2021-08-29 15:45 | RT.EKG_ITS ---
APPROVED REPORT Exam: Resting ECG Reason for Exam: hyperkalemia Patient Location: E HR:66 bpm ECG Measurements Heart Rate 66 AXIS IN 161 P 38 QRSd 91 QRS 32 QT 390 T 40 QTc 407 Conclusion Sinus rhythm...normal P axis, V-rate 60- 99
[2021-08-29 16:29] LABS: Anion Gap 4.8 mmol/L (3-11); BUN 46 mg/dL (7-18); CO2 27.2 mmol/L (21.0-32.0); CREATININE 1.9 mg/dL (0.70-1.30); Calcium 8.2 mg/dL (8.5-10.1); Chloride 110 mmol/L (98-107); Glucose 79 mg/dL (74-106); Sodium 142 mmol/L (136-145)
[2021-08-29 16:34] LABS: Potassium 4.5 mmol/L (3.5-5.1)
== END 2021-08-29 18:00 | disposition home or self-care (01) ==
PROVIDERS: Physician Assistant; Emergency Provider Physician Assistant; PCP Physician Assistant Medical
DX: R19.7 Diarrhea, unspecified (principal); N17.9 Acute kidney failure, unspecified; E87.5 Hyperkalemia; R10.9 Unspecified abdominal pain
CPT/HCPCS: 36416; 80048; 80053; 82550; 82962; 87635; 93005; 96361; 96365; 96366; 96368; 99284; 74176; 81003; 81015; 83735; 85025; 93010; J0610

== ENCOUNTER 2021-09-01 09:23 | Outpatient (REF) | payer MEDICAID, SELFPAY ==
[2021-09-01 14:24] LABS: ALT 71 U/L (16-63); AST 36 U/L (15-37); Albumin 3.4 g/dL (3.4-5.0); Alkaline Phosphatase 75 U/L (46-116); Anion Gap 9.8 mmol/L (3-11); BUN 28 mg/dL (7-18); Bilirubin, Total 0.7 mg/dL (0.2-1.0); CO2 25.2 mmol/L (21.0-32.0); CREATININE 1.7 mg/dL (0.70-1.30); Calcium 9.3 mg/dL (8.5-10.1); Chloride 105 mmol/L (98-107); Estimated GFR 41.04 (mL/min/1.73m2); Glucose 93 mg/dL (74-106); Potassium 5.3 mmol/L (3.5-5.1); Sodium 140 mmol/L (136-145)
== END 2021-09-01 09:24 | disposition home or self-care (01) ==
LOC: NCHCN 09:23
PROVIDERS: PCP Physician Assistant Medical; Visit Provider Physician Assistant Medical
DX: R10.9 Unspecified abdominal pain (principal)
CPT/HCPCS: 80053

== ENCOUNTER 2021-09-08 12:58 | Outpatient (REF) | payer MEDICAID, SELFPAY ==
[2021-09-08 15:35] LABS: Anion Gap 7.5 mmol/L (3-11); BUN 34 mg/dL (7-18); CO2 27.5 mmol/L (21.0-32.0); CREATININE 1.5 mg/dL (0.70-1.30); Calcium 9.3 mg/dL (8.5-10.1); Chloride 108 mmol/L (98-107); Estimated GFR 47.42 (mL/min/1.73m2); Glucose 98 mg/dL (74-106); Potassium 5.3 mmol/L (3.5-5.1); Sodium 143 mmol/L (136-145)
== END 2021-09-08 12:59 | disposition home or self-care (01) ==
LOC: NCHCN 12:58
PROVIDERS: PCP Physician Assistant Medical; Visit Provider Physician Assistant Medical
DX: R79.89 Other specified abnormal findings of blood chemistry (principal)
CPT/HCPCS: 80048

== ENCOUNTER 2021-10-21 09:04 | Outpatient (REF) | payer MEDICAID, SELFPAY ==
[2021-10-21 15:00] LABS: Hemoglobin A1C 5.5 % (<5.7)
[2021-10-21 15:21] LABS: ALT 51 U/L (16-63); AST 26 U/L (15-37); Albumin 3.6 g/dL (3.4-5.0); Alkaline Phosphatase 91 U/L (46-116); BUN 28 mg/dL (7-18); Bilirubin, Total 0.6 mg/dL (0.2-1.0); CREATININE 1.3 mg/dL (0.70-1.30); Calcium 9.2 mg/dL (8.5-10.1); Calculated LDL 67 mg/dL (<100); Chloride 103 mmol/L (98-107); Cholesterol 167 mg/dL (<200); Estimated GFR 55.94 (mL/min/1.73m2); Glucose 182 mg/dL (74-106); HDL Cholesterol 42 mg/dL (40-60); Potassium 4.6 mmol/L (3.5-5.1); Sodium 139 mmol/L (136-145); Total Protein 6.9 g/dL (6.4-8.2); Triglyceride 291 mg/dL (<150)
[2021-10-21 15:33] LABS: Uric Acid 7.2 mg/dL (3.5-7.2)
== END 2021-10-21 09:05 | disposition home or self-care (01) ==
LOC: NCHCN 09:04
PROVIDERS: PCP Physician Assistant Medical; Visit Provider Physician Assistant Medical
DX: I10 Essential (primary) hypertension (principal); E78.5 Hyperlipidemia, unspecified; R73.03 Prediabetes
CPT/HCPCS: 80053; 80061; 83036; 84550

== ENCOUNTER 2022-01-26 12:50 | Outpatient (REF) | payer MEDICAID, SELFPAY ==
[2022-01-26 14:34] LABS: Abs Immature Grans 0.02 10^3/uL (0.0-0.06); Absolute Basophil Count 0.05 10^3/uL (0.0-0.2); Absolute Eosinophil Count 0.22 10^3/uL (0.0-0.7); Absolute Lymphocyte Count 1.73 10^3/uL (1.2-3.4); Absolute Monocyte Count 0.51 10^3/uL (0.1-0.8); Absolute Neutrophil Count 4.25 10^3/uL (1.2-6.7); Basophils % 0.7; Eosinophils % 3.2; HCT 42.4 % (40.0-50.0); HGB 13.8 g/dL (13.5-17.5); Immature Grans % 0.3; Lymphocytes % 25.5; MCH 30.8 pg (27.0-33.0); MCHC 32.5 % (32.0-36.0); MCV 94.6 fL (80-95); MPV 9.3 fL (8.0-11.0); Monocytes % 7.5; Neutrophils % 62.8; Nucleated RBC 0 %; Platelet Count 289 10^3/uL (130-400); RBC 4.48 10^6/uL (4.36-5.78); RDW 13.3 % (11.8-14.1); RDW-SD 46.5 fL; WBC 6.78 10^3/uL (4.4-10.8)
[2022-01-26 14:57] LABS: Hemoglobin A1C 6.5 % (<5.7)
[2022-01-26 15:22] LABS: ALT 55 U/L (16-63); AST 32 U/L (15-37); Albumin 3.5 g/dL (3.4-5.0); Alkaline Phosphatase 91 U/L (46-116); BUN 26 mg/dL (7-18); Bilirubin, Total 0.6 mg/dL (0.2-1.0); CREATININE 1.4 mg/dL (0.70-1.30); Calcium 9.4 mg/dL (8.5-10.1); Chloride 103 mmol/L (98-107); Estimated GFR 51.35 (mL/min/1.73m2); Glucose 172 mg/dL (74-106); Potassium 4.9 mmol/L (3.5-5.1); Sodium 139 mmol/L (136-145); Total Protein 7.1 g/dL (6.4-8.2); Vitamin B12 474 pg/mL (193-986)
== END 2022-01-26 12:51 | disposition home or self-care (01) ==
LOC: NCHCN 12:50
PROVIDERS: PCP Physician Assistant Medical; Visit Provider Physician Assistant Medical
DX: R79.89 Other specified abnormal findings of blood chemistry (principal); R06.09 Other forms of dyspnea
CPT/HCPCS: 80053; 82607; 83036; 85025

== ENCOUNTER 2022-02-02 01:34 | Outpatient (CLI) | payer MEDICAID, SELFPAY ==
--- NOTE | 2022-02-02 08:00 | ETT_ITS ---
APPROVED REPORT Exam: Exercise Treadmill Patient Location: Out-Patient Room/Bed: Stress Nurse: Indigo Aquino RN Ordering Provider:MARTINE ERAZO, Contact Number: [phone] BMI: 29.69 Baseline Rhythm: Sinus Rhythm Indications: DYSPNEA ON EXERTION Medical History Medical History: HTN, HLD, Prediabetes, Former smoker Cardiac Medications: Metoprolol succinate, Atorvastatin, Aspirin, Lisinopril, Albuterol sulfate Allergies: No known drug allergies Cardiac Risk Factors: HTN, Hyperlipidemia, Smoking (former) Previous Cardiac Procedures: None Pretest Chest Pain Characteristics: No chest pain or dyspnea Exercise History: Indeterminate Physical Disabilities: None Lung Sounds: Clear to auscultation, diminished right upper lobe Heart Sounds: Regular Stress Test Details Test: Exercise stress testing was performed using a Abelino protocol. Rest Stress HR Resting HR Supine: 75 bpm Max Heart Rate (APMHR): 158 bpm Resting HR Standin bpm Target HR (85% APMHR): 134 bpm Max HR Achieved: 140 bpm % of APMHR: 88 Recovery HR: 85 bpm HR response to stress: Normal HR response to stress BP Resting BP Supine: 158/78 mmHg Resting BP Standin/82 mmHg Max BP: 192/94 mmHg Recovery BP: 172/80 mmHg BP response to stress: Normal blood pressure response to stress. ECG Resting ECG: Sinus Rhythm Ectopy: None Comment: Abnormal R wave progression Stress ECG: Sinus Rhythm, normal EKG ST Change: Upsloping ST depression Lead(s): inferior leads Stage: [address] Deviation: 1 mm Arrhythmia: None Recovery ECG: Sinus Rhythm Recovery ST Change: No significant ST segment changes noted Recovery Arrhythmia: None Clinical Reason for Termination: Fatigue, Dyspnea Stress Symptoms: Dyspnea, Leg Fatigue Exercise duration: 7 min49 sec Highest Stage Reached: Stage 3: 3.4 mph at 14% grade. Exercise capacity: 9.87 METs Zamora Treadmill Score: 7.3 Rate Pressure Product: [id number] Stress ECG Conclusion 1. The resting electrocardiogram was within normal limits 2. Patient exercised on the Abelino protocol completed a workload of 9.87 METS, stopping due to leg fat igue and shortness of breath 3. Normal heart rate and blood pressure response to exercise. The patient achieved 88% of predicted heart rate for age 4. There was no electrocardiographic evidence of myocardial ischemia 5. There were no significant dysrhythmias Zamora Treadmill Score is 7.3 which is Low risk. Stress Test Summary STAGE Time (mins) Speed (mph) Grade (%) HR BP SYMPTOMS METS Supine 75 158/78 Standing 92 164/82 1 3 1.7 10 110 166/88 4.6 2 6 2.5 12 124 172/90 SpO2 97%, moderate SOB 7 1 min recovery 128 178/88 3 min recovery 92 192/94 6 min recovery 95 172/80
== END 2022-02-02 01:54 ==
PROVIDERS: PCP Physician Assistant Medical; Visit Provider Physician Assistant Medical
DX: R06.09 Other forms of dyspnea (principal)
CPT/HCPCS: 93017

== ENCOUNTER → 2022-03-09 03:16 | Outpatient (CLI) | payer MEDICAID, SELFPAY ==
--- NOTE | 2022-03-09 13:00 | DI.CTLCSR_ITS ---
Exam(s) CT CHEST LUNG CANCER SCREEN EXAM: CT CHEST LUNG CANCER SCREEN CLINICAL HISTORY: COPD, J44.9; FORMER SMOKER, Z87.890 TECHNIQUE: Imaging Protocol: Axial computed tomography images with coronal and sagittal reformatted images were created and reviewed COMPARISON: CT CT ABDOMEN PELVIS WO from 08/29/2021 FINDINGS: The examination is limited due to patient motion artifact. Tracheobronchial tree: Patent where visualized. Pulmonary parenchyma: No consolidation or dominant measurable mass. No architectural distortion. Ther e is a calcified granuloma in the left upper lobe. Lung Nodules: None. Mediastinum and [place]: No dominant adenopathy or fluid collection. The esophagus is unremarkable. Thyroid gland: Unremarkable. Lymph nodes: Unremarkable. Pleura: No effusion or pneumothorax. Heart: The heart is not dilated. Coronary artery calcifications are present. No pericardial effusion . Aorta: Thoracic aorta non-dilated.Atherosclerosis. Upper abdomen: Unremarkable. Soft Tissues: Bilateral gynecomastia. Bones: Within normal limits. Old rib fractures are noted. IMPRESSION: No noncalcified pulmonary nodules. Lung RADS Cat 1 - Negative: No nodules and definitely benign nodules Lung-RADS 1.0 CATEGORIES: Category 0 - Prior chest CT exam(s) being located for comparison. Category 1 - Annual screening in 12 months. No nodules or definitely benign nodules. Category 2 - Annual screening in 12 months. Benign appearance. Nodules with low likelihood of becomin g active cancer. Category 3 - 6-month follow-up. Probably benign. Short-term follow-up suggested. Nodules with low lik elihood of becoming active cancer. Category 4A - 3-month follow-up and CT/PET if >8 mm in size. Suspicious finding. Findings which requi re additional testing. Category 4B - Findings which require additional testing and tissue sampling. Suspicious finding. Category 4X - Category 3 or 4 nodules with additional features or imaging findings that increases the suspicion of malignancy. Modifier S- Potentially clinically significant finding. (Non lung cancer) RADIATION DOSE DELIVERED: 90.81mGy.cm Total DLP !Error CTDIvol 90.81mGy.cm Total DLP 2.21mGy CTDIvol DATA REPOSITORY: All CT scans at this facility are submitted to the National Radiology Data Registry (NRDR) Dose Index Registry (DIR) with the [employer] ([employer]). RADIATION OPTIMIZATION: All CT scans at this facility use at least one of these dose optimization te chniques: automated exposure control; mA and/or kV adjustment per patient size (includes targeted exa ms where dose is matched to clinical indication); or iterative reconstruction.
== END ==
PROVIDERS: PCP Physician Assistant Medical; Visit Provider Physician Assistant Medical
DX: Z12.2 Encounter for screening for malignant neoplasm of respiratory organs (principal); J44.9 Chronic obstructive pulmonary disease, unspecified; Z87.891 Personal history of nicotine dependence; R91.8 Other nonspecific abnormal finding of lung field
CPT/HCPCS: 71271

== ENCOUNTER 2022-09-14 09:46 | Outpatient (REF) | payer MEDICAID, SELFPAY ==
[2022-09-14 18:02] LABS: ALT 75 U/L (16-63); AST 36 U/L (15-37); Albumin 3.6 g/dL (3.4-5.0); Alkaline Phosphatase 87 U/L (46-116); Anion Gap 7.6 mmol/L (3-11); BUN 26 mg/dL (7-18); CO2 29.4 mmol/L (21.0-32.0); CREATININE 1.6 mg/dL (0.70-1.30); Calcium 9.4 mg/dL (8.5-10.1); Calculated LDL 135 mg/dL (<100); Chloride 101 mmol/L (98-107); Cholesterol 258 mg/dL (<200); Estimated GFR 48.11 (mL/min/1.73m2); Glucose 122 mg/dL (74-106); HDL Cholesterol 55 mg/dL (40-60); Potassium 5.1 mmol/L (3.5-5.1); Sodium 138 mmol/L (136-145); Total Protein 7.8 g/dL (6.4-8.2); Triglyceride 342 mg/dL (<150)
== END 2022-09-14 09:47 | disposition home or self-care (01) ==
LOC: NCHCN 09:46
PROVIDERS: PCP Physician Assistant Medical; Visit Provider Physician Assistant Medical
DX: E78.5 Hyperlipidemia, unspecified (principal); I10 Essential (primary) hypertension; E11.9 Type 2 diabetes mellitus without complications
CPT/HCPCS: 80053; 80061; 83036

== ENCOUNTER 2023-04-21 16:46 | Outpatient (REF) | payer MEDICAID, SELFPAY ==
[2023-04-21 19:43] LABS: Abs Immature Grans 0.02 10^3/uL (0.0-0.06); Absolute Basophil Count 0.06 10^3/uL (0.0-0.2); Absolute Eosinophil Count 0.17 10^3/uL (0.0-0.7); Absolute Lymphocyte Count 1.17 10^3/uL (1.2-3.4); Absolute Monocyte Count 0.68 10^3/uL (0.1-0.8); Absolute Neutrophil Count 4.62 10^3/uL (1.2-6.7); Basophils % 0.9; Eosinophils % 2.5; HCT 40.5 % (40.0-50.0); HGB 13.3 g/dL (13.5-17.5); Immature Grans % 0.3; Lymphocytes % 17.4; MCH 31.3 pg (27.0-33.0); MCHC 32.8 % (32.0-36.0); MCV 95 fL (80-95); MPV 9.1 fL (8.0-11.0); Monocytes % 10.1; Neutrophils % 68.8; Platelet Count 303 10^3/uL (130-400); RBC 4.25 10^6/uL (4.36-5.78); RDW-SD 45.6 fL; WBC 6.72 10^3/uL (4.4-10.8)
[2023-04-21 20:16] LABS: ALT 57 U/L (16-63); AST 33 U/L (15-37); Albumin 3.4 g/dL (3.4-5.0); Alkaline Phosphatase 104 U/L (46-116); Anion Gap 7.3 mmol/L (3-11); BUN 24 mg/dL (7-18); Bilirubin, Total 0.4 mg/dL (0.2-1.0); CO2 26.7 mmol/L (21.0-32.0); CREATININE 1.2 mg/dL (0.70-1.30); Calcium 9.2 mg/dL (8.5-10.1); Chloride 103 mmol/L (98-107); Estimated GFR 67.95 (mL/min/1.73m2); Glucose 101 mg/dL (74-106); Lipase 103 U/L (16-77); Potassium 4.4 mmol/L (3.5-5.1); Sodium 137 mmol/L (136-145); Total Protein 7.2 g/dL (6.4-8.2)
== END 2023-04-21 16:47 | disposition home or self-care (01) ==
LOC: NCHCN 16:46
PROVIDERS: PCP Physician Assistant Medical; Visit Provider Physician Assistant Medical
DX: R68.81 Early satiety (principal)
CPT/HCPCS: 80053; 83690; 85025

== ENCOUNTER 2023-04-26 12:18 | Emergency (ER) | payer MEDICAID, SELFPAY ==
[2023-04-26 12:29] VITALS: BP 132/73; PULSE 84; RESP 15; TEMP 36.6; O2SAT 94
--- NOTE | 2023-04-26 13:30 | RT.EKG_ITS ---
APPROVED REPORT Exam: Resting ECG Reason for Exam: Patient Location: E HR:73 bpm ECG Measurements Heart Rate 73 AXIS NE 156 P 36 QRSd 87 QRS 29 QT 383 T 31 QTc 422 Conclusion Sinus rhythm...normal P axis, V-rate 60- 99 Narrow complex normal sinus rhythm at a rate of 73. Normal axis. Intervals within normal limits. T wave flattening in lead III. No ST segment abnormalities. No acute injury pattern. Appears simila r to prior dated 2020.
--- NOTE | 2023-04-26 13:30 | DI.CT_ITS ---
Exam(s) CT THORAX ABD/PEL CTA EXAM: CT THORAX ABD/PEL CTA CLINICAL HISTORY: abdominal pain x3wks, worsening, hx AAA. TECHNIQUE: Imaging Protocol: Axial computed tomography images with coronal and sagittal reformatted images were created and reviewed CONTRAST MATERIAL: Intravenous: Omnipaque 350 Contrast volume:100 ml Oral: None COMPARISON: CT CT ABDOMEN PELVIS WO from 08/29/[address] CHEST LUNG CANCER SCREEN from 03/09/2022 FINDINGS: CHEST: AORTA: The diameter of the ascending thoracic aorta is 3.5 cm and there is no evidence of obvious dis section nor pericardial effusion. The descending thoracic aorta is atherosclerotic with 2.[address] No dissection flap evident. In the abdomen the aorta is atherosclerotic. Aneurysm noted which exhibits a thin waist at the level of the renal arteries. Maximum diameter of this fusiform abdominal aortic aneurysm is 4.3 cm, minim ally more prominent than August 2021. Aneurysmal dilatation does not extend into left common iliac artery. 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 This is unchanged from previous. There is a thin nonobstructive intimal flap at this level. There is no significant aneurysmal dilatation of the external iliac arteries and common femoral arteries. Internal iliac arteries are patent and without significant aneurysms. LUNGS: There is focal subpleural infiltrate in the right lower lobe, specifically in the posterior ba mychal segment of the right lower lobe, not associated with pleural effusion. This infiltrate measures approximately 2 x 2.4 cm. Milder patchy infiltrate is noted in the superior segment of the right low er lobe. There is relative sparing of the right upper lobe. In the opposite-left lung there is an area of mild infiltrate in the apical posterior segment of the left upper lobe adjacent to the upper aspect of the major fissure, this infiltrate measuring 1.5 x 1. 0 cm. There is also mild nodular infiltrate in the left upper lobe measuring 8 x 7 mm. There is als o sub pleural infiltrates in the posterior basal and lateral basal segments of the left lower lobe.. Effusions on either side. There are no significant focal findings in the trachea and mainstem bronc hi. MEDIASTINUM: There are mildly enlarged lymph nodes in both hilar regions as well as in the subcarinal region. Also slightly prominent anterior mediastinal fat lymph nodes as well as a slightly prominen t lymph node anterior to the anthony which measures 2 by 1.5 cm. No supraclavicular adenopathy. No a xillary adenopathy. Partially visualized thyroid appears unremarkable. CARDIAC: Heart size is normal. There is no pericardial effusion. AORTA: As above. ABDOMEN: Aortic findings as above. There is no ascites. LIVER: Liver is hypodense implying steatosis but there are no discrete focal hepatic lesions identifi ed. No dilated intrahepatic ducts. GALLBLADDER/BILIARY: No obvious gallbladder pathology. CBD is not dilated. PANCREAS: No evidence of pancreatic mass nor dilatation of the pancreatic duct. SPLEEN: Spleen is not enlarged. There are no intrasplenic lesions. Splenic and portal veins are segovia nt. ADRENALS: There are no significant adrenal masses. KIDNEYS: There is a benign exophytic posterior cortex of the right kidney which measures 1.4 x 1.0 cm . This does not require further workup. No solid renal masses. No calculi. No hydronephrosis. No hydroureter. Present. ABDOMINAL AORTA: Abdominal aortic aneurysm as described above with maximum external diameter 4.3 cm. There is para-aortic adenopathy noted. Is slightly enlarged lymph nodes on both sides the abdominal aorta. More so than previous. LYMPH NODES: Para-aortic adenopathy noted, most prominent below the level of the left renal vein. No obvious mesenteric masses. ABDOMINAL WALL: No evidence of significant anterior abdominal wall hernia. GI: There is no evidence of bowel obstruction, free air, nor abscess. PELVIS: LYMPH NODES: Mild intrapelvic adenopathy, most evident along the proximal left iliac vessels. GI: No evidence of appendicitis.No evidence of sigmoid diverticulitis. URINARY BLADDER: Uniformly thickened urinary bladder wall. No diverticuli. No radiopaque calculi ev ident in the bladder lumen. No bladder distension. No obvious distinct focal mass. REPRODUCTIVE: Prostate not enlarged nor calcified. Seminal vesicles unremarkable. No obturator marcial opathy evident. OSSEOUS: No significant osseous lesions. No fractures. IMPRESSION: 1. Compared to the prior CT scan of 08/29/2021 and 03/09/2022, there are now multilevel infiltrates i n both lungs as described above, not associated with pleural effusions. 2. There is now mild bilateral hilar and mediastinal adenopathy in the chest as well as mild-moderate para-aortic adenopathy in the abdomen and pelvis. These findings are concerning for possible lympho ma. 3. No axillary nor inguinal adenopathy evident. 4. Stable appearance of the 4.3 cm abdominal aortic aneurysm as well as a 1.5 cm aneurysm of the righ t common iliac artery. 5. The thoracic aorta is atherosclerotic but not significantly dilated. Findings called by myself to ER provider. RADIATION DOSE DELIVERED: 1,252.02mGy.cm Total DLP DATA REPOSITORY: All CT scans at this facility are submitted to the National Radiology Data Registry (NRDR) Dose Index Registry (DIR) with the [employer] (ACR). RADIATION OPTIMIZATION: All CT scans at this facility use at least one of these dose optimization te chniques: automated exposure control; mA and/or kV adjustment per patient size (includes targeted exa ms where dose is matched to clinical indication); or iterative reconstruction.
--- NOTE | 2023-04-26 13:41 | ED.GENADUL_ITS ---
Discharge Plan Disposition Patient Disposition: Home Condition: Stable Discharge Details Clinical Impression: Lymphadenopathy, Infiltrate noted on imaging study, Elevated lipase Primary Care Provider: Dom Dupree ED Provider: Marivel Bobby Home Meds and New Rx's Prescriptions: New doxycycline monohydrate 100 mg tablet 100 mg PO BID Qty: 14 0RF Continued indomethacin 25 mg capsule 25 mg PO TID Rx Instructions: administer with food or milk aspirin [Adult Aspirin Regimen] 81 mg tablet,delayed release (DR/EC) 81 mg PO DAILY metoprolol succinate 50 mg tablet extended release 24 hr 50 mg PO DAILY atorvastatin [Lipitor] 40 mg tablet 40 mg PO QHS Proair Digihaler 90 mcg/actuation aero powdr breath act w/sensor 2 inh inhalation Q6H Narcan 4 mg/actuation spray,non-aerosol 4 mg intranasal Q2M PRN Rx Instructions: spray 1 dose into ONE nostril; alternate nostrils w each dose until help arrives dicyclomine 20 mg tablet 20 mg PO QID Qty: 14 0RF melatonin 10 mg Tablet 10 mg PO HS Discharge Instructions Instructions: Lymphadenopathy (ED) Additional Instructions: Your imaging is concerning for enlarged lymphnodes. This is concerning for lymphoma. You have been referred to interventional specialists at [facility] for biopsy of lymphnode. Your scan was also concerning for possible pneumonia, we will start you on antibiotics. Please take these as prescribed. These can cause sensitivity to sun, please keep covered as much as possible and/or wear sunscreen. I have also called your primary care and will ensure they are aware of what is going on today. I encourage that you follow up with them in the next week. Please continue with increased water intake. You may use Tylenol and/or Ibuprofen as needed for discomfort. If you develop fevers/chills, increased pain, inability to stay hydrated or other new/worsening symptoms, please seek care urgently once again. Referrals: Dom Dupree PA [Primary Care Provider] - Discharge Data Discharge Date/Time-TO BE ENTERED AT DEPARTURE: 04/26/23 16:43 Medical Decision Making Patient is a pleasant 62-year-old male with past medical history significant for AAA, COPD, alcohol abuse, hyperlipidemia, hypertension, Lyme disease, prsenting today, accompanied by his significant other, with chief complaint of abdominal pain x3 weeks. He reports over the past few weeks his about 8 pounds associated with diminished p.o. intake. He reports that every time he eats he becomes more bloated. No focal area of pain. Was seen by his primary care and work-up was concerning for slightly elevated lipase of 103. He reports that he has CT coming up but is not until May 13 and he is quite concerned that the pain has been this significant for this long. He denies any fevers or chills. States that he has had some dry heaving over the past few weeks but no vomiting. States that his stool is smaller than typical but that he is also eating less. No change in urinary output, reports that if anything he is urinating more as he is been trying to increase his water intake. Has not changed his alcohol intake and has several drinks after work every day. Pain does radiate slightly into the back, primarily on the left side. He also reports that he has had cough for the past 3 weeks having this frequent cough is now also causing him to have some chest discomfort. No exertional chest pain. Denies shortness of breath unless his abdomen is so bloated that it is starting to push up onto his chest. On exam, patient appears nontoxic. Hemodynamically stable. Lungs are clear, normal cardiac exam. abdomen is diffusely tender, maximal over the left lower quadrant with no pulsatile mass, palpable mass, hernia palpated. Concerned given the chronicity and weight loss, for potential cancerous source. Plan for imaging. History is also concerning with hx of AAA. Although he does not have ripping/tearing, abrupt onset or radiation to the back, evaluation of the aorta is appropriate. Also considered diverticulitis based on area of maximal tenderness, less likely pancreatitis vs. other. Will obtain labs and imaging. Labs concerning for lipase slightly elevated at 97, this is downtrending. I do not believe he has acute pancreatitis but will evaluate with imaging. FINDINGS: CHEST: AORTA: The diameter of the ascending thoracic aorta is 3.5 cm and there is no evidence of obvious dissection nor pericardial effusion.? The descending thoracic aorta is atherosclerotic with 2.5 cm diameter.? No dissection flap evident. In the abdomen the aorta is atherosclerotic.? Aneurysm noted which exhibits a thin waist at the level of the renal arteries.? Maximum diameter of this fusiform abdominal aortic aneurysm is 4.3 cm, minimally more prominent than August 2021.? Aneurysmal dilatation does not extend into left common iliac artery.? 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 This is unchanged from previous.? There is a thin nonobstructive intimal flap at this level.? There is no significant aneurysmal dilatation of the external iliac arteries and common femoral arteries.? Internal iliac arteries are patent and without significant aneurysms. LUNGS: There is focal subpleural infiltrate in the right lower lobe, specifically in the posterior basal segment of the right lower lobe, not associated with pleural effusion.? This infiltrate measures approximately 2 x 2.4 cm.? Milder patchy infiltrate is noted in the superior segment of the right lower lobe.? There is relative sparing of the right upper lobe. In the opposite-left lung there is an area of mild infiltrate in the apical posterior segment of the left upper lobe adjacent to the upper aspect of the major fissure, this infiltrate measuring 1.5 x 1.0 cm.? There is also mild nodular infiltrate in the left upper lobe measuring 8 x 7 mm.? There is also sub pleural infiltrates in the posterior basal and lateral basal segments of the left lower lobe..? Effusions on either side.? There are no significant focal findings in the trachea and mainstem bronchi. MEDIASTINUM: There are mildly enlarged lymph nodes in both hilar regions as well as in the subcarinal region.? Also slightly prominent anterior mediastinal fat lymph nodes as well as a slightly prominent lymph node anterior to the anthony which measures 2 by 1.5 cm.? No supraclavicular adenopathy.? No axillary adenopathy.? Partially visualized thyroid appears unremarkable. CARDIAC: Heart size is normal.? There is no pericardial effusion. AORTA: As above. ABDOMEN: Aortic findings as above. There is no ascites. LIVER: Liver is hypodense implying steatosis but there are no discrete focal hepatic lesions identified.? No dilated intrahepatic ducts. GALLBLADDER/BILIARY: No obvious gallbladder pathology.? CBD is not dilated. PANCREAS: No evidence of pancreatic mass nor dilatation of the pancreatic duct.? SPLEEN: Spleen is not enlarged.? There are no intrasplenic lesions. Splenic and portal veins are patent. ADRENALS: There are no significant adrenal masses. KIDNEYS: There is a benign exophytic posterior cortex of the right kidney which measures 1.4 x 1.0 cm.? This does not require further workup.? No solid renal masses.? No calculi.? No hydronephrosis.? No hydroureter.? Present. ABDOMINAL AORTA: Abdominal aortic aneurysm as described above with maximum external diameter 4.3 cm.? There is para-aortic adenopathy noted.? Is slightly enlarged lymph nodes on both sides the abdominal aorta.? More so than previous. LYMPH NODES: Para-aortic adenopathy noted, most prominent below the level of the left renal vein.? No obvious mesenteric masses. ABDOMINAL WALL: No evidence of significant anterior abdominal wall hernia.? GI: There is no evidence of bowel obstruction, free air, nor abscess. PELVIS: LYMPH NODES: Mild intrapelvic adenopathy, most evident along the proximal left iliac vessels. GI: No evidence of appendicitis.No evidence of sigmoid diverticulitis. URINARY BLADDER: Uniformly thickened urinary bladder wall.? No diverticuli.? No radiopaque calculi evident in the bladder lumen.? No bladder distension.? No obvious distinct focal mass. REPRODUCTIVE: Prostate not enlarged nor calcified.? Seminal vesicles unremarkable.? No obturator adenopathy evident. OSSEOUS: No significant osseous lesions. No fractures. IMPRESSION: 1. Compared to the prior CT scan of 08/29/2021 and 03/09/2022, there are now multilevel infiltrates in both lungs as described above, not associated with pleural effusions. 2. There is now mild bilateral hilar and mediastinal adenopathy in the chest as well as mild-moderate para-aortic adenopathy in the abdomen and pelvis.? These findings are concerning for possible lymphoma. 3. No axillary nor inguinal adenopathy evident. 4. 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 5. ? The thoracic aorta is atherosclerotic but not significantly dilated. Will send imaging to [facility] and request consultation. Discussed findings with the patient and his . At the end of my shift, care transitioned to Emelina Martell with consultation pending. PCP also paged. Consulted with hematology at [facility]. He advised that he will need lymphnode bx, recommends f/u with interventional pulmonlogy for bronchoscopy. Advised sending LDH. Advised that bronch would allow for bx of the most accessible node. Spoke with PCP, they will put in referral for intervental pulmonology and continue management. Discussed with patient. We discussed treatment options, he would like to be d/c'ed to home, will fu with PCP bar with referal pending. Strict return precautions discussed. Encouraged hydration. Discussed supportive care. Given infiltrate, will give abx out of abundance of caution as pneumonia may be playing into this but, again, less likely. Discussed potential SE. All of their querstions and concerns were addressed, they are in agreement with this plan. HPI General Date/Time Provider Initiated Documentation: 04/26/23 12:51 . Limitations to Documentation: no limitations . Information obtained by: patient, family, RN notes reviewed and old records reviewed . History of Present Illness 62 year old M presents to the emergency department with the chief complaint of bloating and abdominal discomfort, de scribed as moderate, with intensity rated at 6. Quality is described as other (bloating, pressure), and is localized to the abdomen. Patient reports no radiation. Patient started experiencing this week(s) and it has been constant. No relieving factors improve symptom(s), Eating worsens symptoms . Patient notes loss of appetite, malaise, nausea/vomiting and other (weight loss); denies chest pain, cough, diaphoresis, fever/chills and shortness of breath. Patient did receive the following treatments prior to arrival, none Related Data Home Medications Medication Instructions Recorded Confirmed albuterol sulfate 90 mcg/actuation 2 inh inhalation Q6H 09/06/20 08/29/21 breath activated powder inhaler,sensor (Proair Digihaler) aspirin 81 mg tablet,delayed 81 mg PO DAILY 09/06/20 08/29/21 release (Adult Aspirin Regimen) atorvastatin 40 mg tablet (Lipitor) 40 mg PO QHS 09/06/20 08/29/21 indomethacin 25 mg capsule 25 mg PO TID 09/06/20 08/29/21 metoprolol succinate 50 mg 50 mg PO DAILY 09/06/20 08/29/21 tablet,extended release 24 hr naloxone 4 mg/actuation nasal 4 mg intranasal Q2M PRN 09/06/20 01/15/21 spray (Narcan) melatonin 10 mg tablet 10 mg PO HS 01/14/21 01/15/21 dicyclomine 20 mg tablet 20 mg PO QID #14 tabs 08/29/21 doxycycline monohydrate 100 mg 100 mg PO BID #14 tabs 04/26/23 tablet Previous Rx's Medication Instructions Recorded dicyclomine 20 mg tablet 20 mg PO QID #14 tabs 08/29/21 doxycycline monohydrate 100 mg 100 mg PO BID #14 tabs 04/26/23 tablet Allergies Allergy/AdvReac Type Severity Reaction Status Date / Time No Known Allergies Allergy Verified 08/29/21 11:03 General Stated Complaint: Abd Prob MARIA VICTORIA: 3 Review of Systems Constitutional Constitutional: Reports as per HPI, Denies chills, Denies fatigue and Denies fever(s) Cardiovascular Cardiovascular: Reports as per HPI, Denies chest pain and Denies dyspnea Respiratory Respiratory: Reports as per HPI, Denies cough and Denies dyspnea Gastrointestinal Gastrointestinal: Reports as per HPI Genitourinary Genitourinary: Denies system reviewed and no additional complaints, except as documented (patient denies any change in urinary habits) Musculoskeletal Musculoskeletal: Reports as per HPI and Denies back pain Integumentary/Breasts Skin/Breast: Reports as per HPI and Denies rash Neurologic Neurologic: Reports as per HPI Endocrine Endocrine: Denies fatigue PFSH All Active Problems (Updated 04/26/23 @ 16:28 by ANAM Zuluaga) Diarrhea (Acute) Hyperkalemia (Acute) Acute kidney injury (Acute) Lymphadenopathy (Acute) Infiltrate noted on imaging study (Acute) Elevated lipase (Acute) Tubular adenoma of colon (Acute) Encounter for screening colonoscopy (Acute) Medical History AAA (abdominal aortic aneurysm) recent US- 3.3 cm infrarenal Chronic rhinitis COPD (chronic obstructive pulmonary disease) Cough Elevated LFTs ETOH abuse Family history of substance abuse Hyperlipidemia Hypertension Impaired fasting glucose Lyme disease Medial epicondylitis of right elbow Shoulder pain, bilateral Surgical History S/P colonoscopy (~2009) S/P left knee arthroscopy Social History Smoking/Tobacco Use Status: Former Tobacco Use Quit Date: 11/15/12 Smoking risk assessment performed?: Yes Alcohol Intake: current Alcohol Intake frequency: 3 or more drinks per day Alcohol type: hard liquor Counseling given: Yes Counseling provided: provider counseling Substance use type: does not use Details: alcohol: t-2, 3 drinks Do you feel safe at home: Yes Do you feel safe in your relationship?: Yes Exam Const General: cooperative, healthy appearing, uncomfortable, no acute distress, well developed and anxious Nutritional Appearance: average body habitus and well nourished Orientation: alert and awake [facility] Head: normal to inspection Mouth: moist mucous membranes Resp Effort & Inspection: normal respiratory effort, able to speak in complete sentences and no respiratory distress Auscultation: clear to auscultation bilaterally, no rales, no rhonchi and no wheezes Cardio Rate: regular rate Rhythm: regular rhythm Heart Sounds: S1 normal and S2 normal GI Inspection: normal to inspection Palpation: soft, no hepatosplenomegaly, no masses, no pulsatile masses, not rigid, tender (diffuse, maximally tender LLQ, no peritoneal findings) and No ascites Percussion: normal to percussion Auscultation: normal bowel sounds Back/Spine/Pelvis Back: no CVA tenderness Skin General skin exam: no rashes or lesions noted Trauma: no lacerations or abrasions Neuro General: patient alert and patient awake Cognition: normal cognition Speech: speech normal Gait: normal gait Extrem General: other (2+ distal pulses, no edema) Psych Appearance: grossly normal and well kempt Mental Status: mental status grossly normal Speech and Movement: speech and movement normal Course Vital Signs Vital signs: Vital Signs Temperature 36.6 C 04/26/23 12:29 Pulse 84 04/26/23 12:29 Respiratory Rate 15 04/26/23 12:29 Blood Pressure 132/73 04/26/23 12:29 Pulse Oximetry 94 04/26/23 12:29 Temperature 36.6 C 04/26/23 12:29 Temperature Source Oral 04/26/23 12:29 Pulse 84 04/26/23 12:29 Respiratory Rate 15 04/26/23 12:29 Respiratory Effort Normal 04/26/23 12:31 Blood Pressure 132/73 04/26/23 12:29 Blood Pressure Position Sitting 04/26/23 12:29 Pulse Oximetry 94 04/26/23 12:29 Oxygen Delivery Method Room Air 04/26/23 12:29 Oxygen Flow Rate 0 04/26/23 12:29 Pain Level 6 04/26/23 12:29 PAWSS Have you Been Recently Intoxicated or Drunk Within the Last 30 days?: No Have you Ever Experienced Previous Episodes of Alcohol Withdrawal?: No Have you ever Experienced Withdrawal Seizures?: No Have you ever Experienced Delirium Tremens(DT)s?: No Have you ever undergone Alcohol Rehabilitation Treatment (i.e, inpt ot outpatient treatment programs)?: No Have you ever Experienced Blackouts?: No Have you ever Combined Alcohol with other Downers within the last 90 days?: No Have you ever Combined Alcohol with any other Substance of Abuse during the last 90 days?: No Result: 0
[2023-04-26 13:55] LABS: Abs Immature Grans 0.02 10^3/uL (0.0-0.06); Absolute Basophil Count 0.04 10^3/uL (0.0-0.2); Absolute Eosinophil Count 0.18 10^3/uL (0.0-0.7); Absolute Lymphocyte Count 1.03 10^3/uL (1.2-3.4); Absolute Monocyte Count 0.63 10^3/uL (0.1-0.8); Absolute Neutrophil Count 4.45 10^3/uL (1.2-6.7); Basophils % 0.6; Eosinophils % 2.8; HCT 43.8 % (40.0-50.0); HGB 14.5 g/dL (13.5-17.5); Immature Grans % 0.3; Lymphocytes % 16.2; MCH 31.5 pg (27.0-33.0); MCHC 33.1 % (32.0-36.0); MCV 95 fL (80-95); MPV 8.9 fL (8.0-11.0); Monocytes % 9.9; Neutrophils % 70.2; Platelet Count 307 10^3/uL (130-400); RDW 12.7 % (11.8-14.1); RDW-SD 44.8 fL; WBC 6.35 10^3/uL (4.4-10.8)
[2023-04-26] MEDS: Lactated Ringers 1,000 ML 1000 ML IV (13:55)
[2023-04-26 14:12] LABS: ALT 51 U/L (16-63); AST 39 U/L (15-37); Albumin 3.5 g/dL (3.4-5.0); Alkaline Phosphatase 114 U/L (46-116); BUN 32 mg/dL (7-18); Bilirubin, Total 0.8 mg/dL (0.2-1.0); CREATININE 1.3 mg/dL (0.70-1.30); Calcium 9.5 mg/dL (8.5-10.1); Chloride 103 mmol/L (98-107); Estimated GFR 61.73 (mL/min/1.73m2); Glucose 107 mg/dL (74-106); Magnesium 2.3 mg/dL (1.8-2.4); Potassium 5.2 mmol/L (3.5-5.1); Sodium 137 mmol/L (136-145)
[2023-04-26 14:16] LABS: Lipase 97 U/L (16-77); Troponin I < 50 ng/L (<or=60)
[2023-04-26] MEDS: Omnipaque 350 MG/ML 100 ML BTL IJ (14:42)
[2023-04-26] MEDS: Normal Saline - Diluent 50 ML VIAL IJ (14:43)
[2023-04-26 14:59] LABS: Bilirubin Negative (Negative); Blood Trace-intact (Negative); Clarity Clear (Clear); Glucose Negative (Negative); Ketones Negative (Negative); Leukocyte Esterase Negative (Negative); Nitrite Negative (Negative); Urobilinogen 0.2 mg/dL (Up to 0.2); pH 5.5 (5-8)
[2023-04-26 15:07] LABS: Bacteria Negative HPF (Negative); C & S Indicated? No; Casts Negative LPF (Negative); Crystals Negative HPF (Negative); Epithelial Cells Rare HPF (Negative); Mucus Negative (Negative); RBC 0-2 HPF (0-2); WBC Negative HPF (0-5)
[2023-04-26 16:59] LABS: LDH 151 U/L (85-227)
== END 2023-04-26 16:43 | disposition home or self-care (01) ==
PROVIDERS: Emergency Provider Physician Assistant; PCP Physician Assistant Medical
DX: R59.1 Generalized enlarged lymph nodes (principal); R74.8 Abnormal levels of other serum enzymes; R93.89 Abnormal findings on diagnostic imaging of other specified body structures
CPT/HCPCS: 71275; 80053; 83690; 93005; 96360; 99285; 74174; 81003; 81015; 83615; 83735; 84484; 85025; 93010; 99284; J3490

== ENCOUNTER 2023-05-15 10:18 | Emergency (ER) | payer MEDICAID, SELFPAY ==
[2023-05-15] VITALS (7 sets, daily range): BP systolic 119–166; BP diastolic 62–91; PULSE 94–115; RESP 16–18; TEMP 36.8; O2SAT 88–98
--- NOTE | 2023-05-15 10:30 | RT.EKG_ITS ---
APPROVED REPORT Exam: Resting ECG Reason for Exam: abd pain Patient Location: E HR:105 bpm ECG Measurements Heart Rate 105 AXIS [place] 147 P 44 QRSd 83 QRS 45 QT 322 T 33 QTc 426 Conclusion Sinus tachycardia...rate> 99
--- NOTE | 2023-05-15 10:30 | DI.CT_ITS ---
Exam(s) CT ABD AORTA CTA W RUNOFF EXAM: CT ABD AORTA CTA W RUNOFF CLINICAL HISTORY: Abdominal Pain, Hx of AAA. TECHNIQUE: Imaging Protocol: Axial CT angiography was performed with multi-slice acquisition and mu lti-planar and/or 3D reconstructions. CONTRAST MATERIAL: Intravenous: Omnipaque 350 Contrast volume:structured data in ml mL Oral: yes / no COMPARISON: CT CT THORAX ABD/PEL CTA from 04/26/2023 FINDINGS: Vascular Structures: Abdomen and pelvis: Aorta: The aneurysmal dilatation of the abdominal aorta is not included on this examination. No diss ection. Iliac Arteries: No evidence of occlusion or significant stenosis. Mild ectasia of the right common iliac artery. Mild atherosclerosis. Lower extremities: Right: Common Femoral: No evidence of occlusion or significant stenosis. Mild atherosclerosis. Femoral: No evidence of occlusion or significant stenosis. Mild atherosclerosis. Deep Femoral Artery: No evidence of occlusion or significant stenosis. Popliteal: No evidence of occlusion or significant stenosis. Mild atherosclerosis. Knee Trifurcation: No evidence of occlusion or significant stenosis. Patent without evidence of occlu luís. Left: Common Femoral: No evidence of occlusion or significant stenosis. Atherosclerosis. Femoral: No evidence of occlusion or significant stenosis. Mild atherosclerosis. Deep femoral artery: No evidence of occlusion or significant stenosis. Popliteal: No evidence ofocclusion or significant stenosis. Mild atherosclerosis. Knee Trifurcation: No evidence of occlusion or significant stenosis. Patent without evidence of occl usion. Soft Tissues: Kidneys: Only the lower pole of the right kidney is visualized. Bladder: There is mild thickening of the wall of the urinary bladder which may be due to underdistent ion. Bowel: The visualized bowel shows no evidence of obstruction or bowel wall thickening. Peritoneal cavity: No ascites, collection or mesenteric inflammatory response. No free air. Bones: Degenerative changes in the spine. IMPRESSION: 1. The upper abdomen is not included on this examination nor is the upper abdominal aorta. 2. Atherosclerotic disease on the runoff without evidence of occlusion. RADIATION DOSE DELIVERED: 1,450.12mGy.cm Total DLP 1,450.12mGy.cm Total DLP DATA REPOSITORY: All CT scans at this facility are submitted to the National Radiology Data Registry (NRDR) Dose Index Registry (DIR) with the [employer] (ACR). RADIATION OPTIMIZATION: All CT scans at this facility use at least one of these dose optimization te chniques: automated exposure control; mA and/or kV adjustment per patient size (includes targeted exa ms where dose is matched to clinical indication); or iterative reconstruction.
--- NOTE | 2023-05-15 10:36 | ED.GENADUL_ITS ---
Discharge Plan Disposition Patient Disposition: Home Condition: Stable Discharge Details Clinical Impression: Acute alcoholic pancreatitis Primary Care Provider: Dom Dupree ED Provider: Edyta Garcia Home Meds and New Rx's Prescriptions: New ondansetron 4 mg tablet,disintegrating 4 mg PO Q8H PRN (Reason: nausea and vomiting) 4 Days Qty: 9 0RF Rx Instructions: Take 1 tablet up to 3 times daily as needed for nausea and vomiting 20 minutes prior to meals. oxycodone 5 mg tablet 5 mg PO Q6H PRN (Reason: pain) Qty: 7 0RF Rx Instructions: Take one tablet by mouth every 6 hours as needed for pain. Take with food and no driving or operating heavy machinery. Continued indomethacin 25 mg capsule 25 mg PO TID Rx Instructions: administer with food or milk aspirin [Adult Aspirin Regimen] 81 mg tablet,delayed release (DR/EC) 81 mg PO DAILY metoprolol succinate 50 mg tablet extended release 24 hr 50 mg PO DAILY atorvastatin [Lipitor] 40 mg tablet 40 mg PO QHS Proair Digihaler 90 mcg/actuation aero powdr breath act w/sensor 2 inh inhalation Q6H Narcan 4 mg/actuation spray,non-aerosol 4 mg intranasal Q2M PRN Rx Instructions: spray 1 dose into ONE nostril; alternate nostrils w each dose until help arrives dicyclomine 20 mg tablet 20 mg PO QID Qty: 14 0RF doxycycline monohydrate 100 mg tablet 100 mg PO BID Qty: 14 0RF melatonin 10 mg Tablet 10 mg PO HS Discharge Instructions Instructions: Pancreatitis (ED) Additional Instructions: It appears that your pancreas is inflamed. This can be caused from alcohol. Please do not drink alcohol until feeling better. Clear liquid diet, advance as tolerated. Stay away from anything fried fatty or spicy. Take medications as prescribed. Follow up with primary care provider in 3-5 days. Return to ED sooner if any worsening vomiting, fever or concerns. Increase oral fluids. Please take Ibuprofen with food every 4-6 hours as needed for pain and swelling. Referrals: Dom Dupree PA [Primary Care Provider] - 3 days Medical Decision Making 62-year-old male presents to the ER with chief complaint of abdominal pain which radiates into his back. Patient was seen here 3 weeks ago for similar type complaint he reports the pain got worse 2 days ago. He has been worked up through [facility] for lymphoma. He does have a past medical history of AAA, COPD, hyperlipidemia hypertension, Lyme disease. He denies any nausea vomiting diarrhea fever chills or problems urinating. Patient describes bloating and irritated stomach. He reports I feel like it is about to below. CTA abdomen with runoff ordered to evaluate his aneurysm. Differential diagnosis includes not limited to chronic abdominal pain from lymphoma, AAA, PR, constipation, gastroenteritis, bowel obstruction. CBC shows no leukocytosis, neutrophil 7.37 potassium is 5.3 anion gap 12.0 BUN 34 creatinine 1.3, magnesium slightly low at 1.7 AST is elevated at 38 alk phos 122 and lipase is truly elevated at greater than 375. Urinalysis shows trace protein 15 ketones small bili 100 glucose. Patient is currently in diagnostic imaging. Differential diagnosis includes pancreatitis. CT shows acute pancreatitis. I did discuss this with patient his family's concern regarding his alcohol use. I did instruct him to stop drinking. Patient was given additional Dilaudid prior to discharge and oxycodone and Zo traci to go home with. Strict return instructions discussed he verbalized understanding. This text was generated using [employer] dictation system, please disregard any oddities of phrase or misspellings. Medical Records Medical records reviewed: Yes I reviewed the patient's medical records. Imaging Data Radiologic Study: Imaging: CT Scan Radiologist's impression: IMPRESSION: There is stranding noted within the mesenteric fat as well as multiple small mesenteric nodes. There is mild stranding, fluid also seen in the peripancreatic fat. Correlate clinically to exclude the possibility of acute pancreatitis. The findings are nonspecific, findings could be related to mesenteric panniculitis. Also within the differential diagnosis is malignancy including lymphoma. Clinical correlation, follow-up recommended. Infrarenal abdominal aortic aneurysm is stable in appearance when compared to the the the the the the the recent CT of the abdomen and pelvis from 04/26/2023. Lab Data Lab results reviewed: Yes I reviewed the patient's lab results. Labs: Laboratory Tests Range/Units 05/15/23 05/15/23 05/15/23 10:30 10:30 10:30 WBC (4.4-10.8) 10^3/uL 9.14 RBC (4.36-5.78) 10^6/uL 4.53 Hgb (13.5-17.5) g/dL 14.0 Hct (40.0-50.0) % 42.4 MCV (80-95) fL 94 MCH (27.0-33.0) pg 30.9 MCHC (32.0-36.0) % 33.0 RDW (11.8-14.1) % 12.4 Plt Count (130-400) 10^3/uL 343 MPV (8.0-11.0) fL 8.7 Immature Gran % 0.3 Neutrophils % 80.7 Lymphocytes % 9.1 Monocytes % 8.6 Eosinophils % 0.9 Basophils % 0.4 Nucleated RBC % (0.0-0.3) % 0.0 Absolute Neutrophils (1.2-6.7) 10^3/uL 7.37 H Absolute Lymphocytes (1.2-3.4) 10^3/uL 0.83 L Absolute Monocytes (0.1-0.8) 10^3/uL 0.79 Absolute Eosinophils (0.0-0.7) 10^3/uL 0.08 Absolute Basophils (0.0-0.2) 10^3/uL 0.04 Sodium (136-145) mmol/L 136 Potassium (3.5-5.1) mmol/L 5.3 H Chloride (98-107) mmol/L 100 Carbon Dioxide (21.0-32.0) mmol/L 24.0 Anion Gap (3-11) mmol/L 12.0 H BUN (7-18) mg/dL 34 H Creatinine (0.70-1.30) mg/dL 1.3 Est GFR (CKD-EPI 2020) (mL/min/1.73m2) 61.73 Glucose (74-106) mg/dL 106 Calcium (8.5-10.1) mg/dL 9.6 Magnesium (1.8-2.4) mg/dL 1.7 L Total Bilirubin (0.2-1.0) mg/dL 1.0 AST (15-37) U/L 38 H ALT (16-63) U/L 47 Alkaline Phosphatase (46-116) U/L 122 H Troponin I (<or=60) ng/L < 50 Total Protein (6.4-8.2) g/dL 7.7 Albumin (3.4-5.0) g/dL 3.5 Lipase (16-77) U/L > 375 H Urine Color (Yellow) Urine Clarity (Clear) Urine pH (5-8) Ur Specific [place] (1.005-1.025) Urine Protein (Negative) mg/dL Urine Ketones (Negative) mg/dL Urine Blood (Negative) Urine Nitrite (Negative) Urine Bilirubin (Negative) Urine Urobilinogen (Up to 0.2) mg/dL Ur Leukocyte Esterase (Negative) Urine Glucose (Negative) mg/dL Range/Units 05/15/23 05/15/23 10:34 11:00 WBC (4.4-10.8) 10^3/uL RBC (4.36-5.78) 10^6/uL Hgb (13.5-17.5) g/dL Hct (40.0-50.0) % MCV (80-95) fL MCH (27.0-33.0) pg MCHC (32.0-36.0) % RDW (11.8-14.1) % Plt Count (130-400) 10^3/uL MPV (8.0-11.0) fL Immature Gran % Neutrophils % Lymphocytes % Monocytes % Eosinophils % Basophils % Nucleated RBC % (0.0-0.3) % Absolute Neutrophils (1.2-6.7) 10^3/uL Absolute Lymphocytes (1.2-3.4) 10^3/uL Absolute Monocytes (0.1-0.8) 10^3/uL Absolute Eosinophils (0.0-0.7) 10^3/uL Absolute Basophils (0.0-0.2) 10^3/uL Sodium (136-145) mmol/L Cancelled Potassium (3.5-5.1) mmol/L Cancelled Chloride (98-107) mmol/L Cancelled Carbon Dioxide (21.0-32.0) mmol/L Cancelled Anion Gap (3-11) mmol/L Cancelled BUN (7-18) mg/dL Cancelled Creatinine (0.70-1.30) mg/dL Cancelled Est GFR (CKD-EPI 2020) (mL/min/1.73m2) Cancelled Glucose (74-106) mg/dL Cancelled Calcium (8.5-10.1) mg/dL Cancelled Magnesium (1.8-2.4) mg/dL Total Bilirubin (0.2-1.0) mg/dL Cancelled AST (15-37) U/L Cancelled ALT (16-63) U/L Cancelled Alkaline Phosphatase (46-116) U/L Cancelled Troponin I (<or=60) ng/L Total Protein (6.4-8.2) g/dL Cancelled Albumin (3.4-5.0) g/dL Cancelled Lipase (16-77) U/L Urine Color (Yellow) Yellow Urine Clarity (Clear) Clear Urine pH (5-8) 5.0 Ur Specific [place] (1.005-1.025) 1.025 Urine Protein (Negative) mg/dL Trace H Urine Ketones (Negative) mg/dL 15 H Urine Blood (Negative) Negative Urine Nitrite (Negative) Negative Urine Bilirubin (Negative) Small H Urine Urobilinogen (Up to 0.2) mg/dL 0.2 Ur Leukocyte Esterase (Negative) Negative Urine Glucose (Negative) mg/dL 100 H HPI General Mode of arrival: ambulatory . Date/Time Provider Initiated Documentation: 05/15/23 10:19 . Limitations to Documentation: no limitations . Information obtained by: patient, RN notes reviewed and old records reviewed . HPI Narrative: 62-year-old male presents to the ER with chief complaint of abdominal pain which radiates into his back. Patient was seen here 3 weeks ago for similar type complaint he reports the pain got worse 2 days ago. He has been worked up through [facility] for lymphoma. He does have a past medical history of AAA, COPD, hyperlipidemia hypertension, Lyme disease. He denies any nausea vomiting diarrhea fever chills or problems urinating. Related Data Home Medications Medication Instructions Recorded Confirmed albuterol sulfate 90 mcg/actuation 2 inh inhalation Q6H 09/06/20 05/15/23 breath activated powder inhaler,sensor (Proair Digihaler) aspirin 81 mg tablet,delayed 81 mg PO DAILY 09/06/20 05/15/23 release (Adult Aspirin Regimen) atorvastatin 40 mg tablet (Lipitor) 40 mg PO QHS 09/06/20 05/15/23 indomethacin 25 mg capsule 25 mg PO TID 09/06/20 08/29/21 metoprolol succinate 50 mg 50 mg PO DAILY 09/06/20 05/15/23 tablet,extended release 24 hr naloxone 4 mg/actuation nasal 4 mg intranasal Q2M PRN 09/06/20 01/15/21 spray (Narcan) melatonin 10 mg tablet 10 mg PO HS 01/14/21 05/15/23 dicyclomine 20 mg tablet 20 mg PO QID #14 tabs 08/29/21 05/15/23 doxycycline monohydrate 100 mg 100 mg PO BID #14 tabs 04/26/23 tablet ondansetron 4 mg disintegrating 4 mg PO Q8H PRN nausea and 05/15/23 tablet vomiting 4 days #9 tabs oxycodone 5 mg tablet 5 mg PO Q6H PRN pain #7 tabs 05/15/23 Previous Rx's Medication Instructions Recorded dicyclomine 20 mg tablet 20 mg PO QID #14 tabs 08/29/21 doxycycline monohydrate 100 mg 100 mg PO BID #14 tabs 04/26/23 tablet ondansetron 4 mg disintegrating 4 mg PO Q8H PRN nausea and 05/15/23 tablet vomiting 4 days #9 tabs oxycodone 5 mg tablet 5 mg PO Q6H PRN pain #7 tabs 05/15/23 Allergies Allergy/AdvReac Type Severity Reaction Status Date / Time No Known Allergies Allergy Verified 05/15/23 10:29 General Stated Complaint: Abd Prob MARIA VICTORIA: 3 Review of Systems All systems reviewed & are unremarkable except as noted in HPI and below Gastrointestinal Gastrointestinal: Reports abdominal pain PFSH All Active Problems (Updated 05/15/23 @ 13:30 by Edyta Garcia NP) Diarrhea (Acute) Hyperkalemia (Acute) Acute kidney injury (Acute) Lymphadenopathy (Acute) Infiltrate noted on imaging study (Acute) Elevated lipase (Acute) Acute alcoholic pancreatitis (Acute) Tubular adenoma of colon (Acute) Encounter for screening colonoscopy (Acute) Medical History AAA (abdominal aortic aneurysm) recent US- 3.3 cm infrarenal Chronic rhinitis COPD (chronic obstructive pulmonary disease) Cough Elevated LFTs ETOH abuse Family history of substance abuse Hyperlipidemia Hypertension Impaired fasting glucose Lyme disease Medial epicondylitis of right elbow Shoulder pain, bilateral Surgical History S/P colonoscopy (~2009) S/P left knee arthroscopy Social History Smoking/Tobacco Use Status: Former Tobacco Use Quit Date: 11/15/12 Smoking risk assessment performed?: Yes Alcohol Intake: current Alcohol Intake frequency: 3 or more drinks per day Alcohol type: hard liquor Counseling given: Yes Counseling provided: provider counseling Substance use type: does not use Details: alcohol: t-2, 3 drinks Housing: house Do you feel safe at home: Yes Do you feel safe in your relationship?: Yes Exam Narrative Exam Narrative: Constitutional: Alert and oriented x3. Appears stated age. Normal body habitus. Head: Normocephalic, no trauma. Eyes: Pupils PERRL, Red reflex noted, EOM's intact. Eyelids symmetrical without lesions, discharge, or swelling. ENT: Bilateral TM's WNL, External ear normal to inspection, no mastoid TTP, swelling, or erythema, Nasal turbinates WNL, no nasal discharge. Normal dentition, Posterior pharynx WNL, no exudate. Chest: RRR, Normal S1, S2, distal pulses intact. Resp: Lungs clear to auscultation bilaterally, no wheezes, rales, or rhonchi. Abdomen: Soft, non-distended, Normoactive bowel sounds all 4 quads. Musculoskeletal: Normal gait, 5/5 strength to all four extremities. Skin: No suspicious rashes or lesions. Capillary refill less than 2 sec. Neurologic: Cranial nerves II-XII intact. Alert and oriented x 3. Motor: No deficits noted. Sensory: Intact bilaterally all 4 extremities. Reflexes: DTR's intact bilaterally.. Hematologic/Lymphatic: No ecchymosis, no lymphadenopathy. Course Vital Signs Vital signs: Vital Signs Temperature 36.8 C 05/15/23 10:25 Pulse 115 H 05/15/23 10:25 Respiratory Rate 16 05/15/23 10:25 Blood Pressure 166/72 H 05/15/23 10:25 Pulse Oximetry 95 05/15/23 10:25 Temperature 36.8 C 05/15/23 10:25 Temperature Source Oral 05/15/23 10:25 Pulse 115 H 05/15/23 10:25 Respiratory Rate 16 05/15/23 10:25 Respiratory Effort Normal 05/15/23 10:28 Blood Pressure 166/72 H 05/15/23 10:25 Blood Pressure Position Sitting 05/15/23 10:25 Pulse Oximetry 95 05/15/23 10:25 Oxygen Delivery Method Room Air 05/15/23 10:25 Oxygen Flow Rate 0 05/15/23 10:25
[2023-05-15 10:41] LABS: Abs Immature Grans 0.03 10^3/uL (0.0-0.06); Absolute Basophil Count 0.04 10^3/uL (0.0-0.2); Absolute Eosinophil Count 0.08 10^3/uL (0.0-0.7); Absolute Lymphocyte Count 0.83 10^3/uL (1.2-3.4); Absolute Monocyte Count 0.79 10^3/uL (0.1-0.8); Absolute Neutrophil Count 7.37 10^3/uL (1.2-6.7); Basophils % 0.4; Eosinophils % 0.9; HCT 42.4 % (40.0-50.0); Immature Grans % 0.3; Lymphocytes % 9.1; MCH 30.9 pg (27.0-33.0); MCV 94 fL (80-95); MPV 8.7 fL (8.0-11.0); Monocytes % 8.6; Neutrophils % 80.7; Platelet Count 343 10^3/uL (130-400); RBC 4.53 10^6/uL (4.36-5.78); RDW 12.4 % (11.8-14.1); RDW-SD 42.9 fL; WBC 9.14 10^3/uL (4.4-10.8)
[2023-05-15] MEDS: Ondansetron 4 MG/2 ML VIAL IVP (10:43)
[2023-05-15] MEDS: Normal Saline 1,000 ML 1000 ML IV (10:47)
[2023-05-15] MEDS: HYDROmorphone 2 MG/ML SYR 0.5 MG IVP ×2 (10:48→13:45)
[2023-05-15 10:57] LABS: Troponin I < 50 ng/L (<or=60)
[2023-05-15 11:16] LABS: Bilirubin Small (Negative); Blood Negative (Negative); Clarity Clear (Clear); Glucose 100 mg/dL (Negative); Ketones 15 mg/dL (Negative); Leukocyte Esterase Negative (Negative); Nitrite Negative (Negative); Specific Gravity 1.025 (1.005-1.025); Urobilinogen 0.2 mg/dL (Up to 0.2)
[2023-05-15 11:17] LABS: ALT 47 U/L (16-63); AST 38 U/L (15-37); Albumin 3.5 g/dL (3.4-5.0); Alkaline Phosphatase 122 U/L (46-116); BUN 34 mg/dL (7-18); CREATININE 1.3 mg/dL (0.70-1.30); Calcium 9.6 mg/dL (8.5-10.1); Chloride 100 mmol/L (98-107); Estimated GFR 61.73 (mL/min/1.73m2); Glucose 106 mg/dL (74-106); Magnesium 1.7 mg/dL (1.8-2.4); Potassium 5.3 mmol/L (3.5-5.1); Sodium 136 mmol/L (136-145); Total Protein 7.7 g/dL (6.4-8.2)
[2023-05-15 11:20] LABS: Lipase > 375 U/L (16-77)
[2023-05-15 11:27] LABS: Bacteria Rare HPF (Negative); C & S Indicated? No; Casts 3-5 Hyaline LPF (Negative); Crystals Negative HPF (Negative); Epithelial Cells Few HPF (Negative); Mucus Moderate (Negative); RBC 0-2 HPF (0-2); WBC 0-2 HPF (0-5)
[2023-05-15] MEDS: Omnipaque 350 MG/ML 100 ML BTL IJ (11:28)
[2023-05-15] MEDS: Omnipaque 350 MG/ML 50 ML BTL IJ ×2 (11:29→12:02)
[2023-05-15] MEDS: Normal Saline - Diluent 50 ML VIAL IJ ×5 (11:30→12:03)
--- NOTE | 2023-05-15 11:45 | DI.CT_ITS ---
Exam(s) CT ABDOMEN CTA EXAM: CT ABDOMEN CTA CLINICAL HISTORY: Abd pain. TECHNIQUE: Imaging Protocol: Axial CT angiography was performed with multi-slice acquisition and m ulti-planar and/or 3D reconstructions. CONTRAST MATERIAL: Intravenous: Omnipaque 350 Contrast volume:50mL Oral: No COMPARISON: CT CT ABD AORTA CTA W RUNOFF from 05/15/2023 FINDINGS: ABDOMEN AND PELVIS: Abdomen: Celiac axis/mesenteric arteries: No evidence of occlusion or significant stenosis. Atherosclerosis is present. Renal Arteries: No evidence of occlusion or significant stenosis. There is a single renal artery perf using each kidney. There is atherosclerosis at the origins. Aorta: No evidence of occlusion or significant stenosis. There is a 4.2 x 3.6 cm infrarenal abdomina l aortic aneurysm. There is atherosclerosis present. Pelvis: Iliac Arteries: No evidence of occlusion or significant stenosis. Atherosclerosis is present. ABDOMEN: Lung bases: Interstitial and alveolar airspace disease is again seen in the lung bases. Liver: There is decreased attenuation of the liver suggesting fatty infiltration. No measurable mass . Portal, Superior Mesenteric, and Splenic Veins: Unremarkable. Gallbladder and Biliary Tract: No radiodense calculus or dilation. Pancreas: Normal density. No abnormal calcifications. There is mild infiltration in the surrounding fat. Spleen: Normal. Adrenals: No masses seen. Kidneys: Normal size, contour and axis. No radiodense stones or obstructive uropathy. No masses seen. Bowel: No obstruction or bowel wall thickening. Appendix is unremarkable. Peritoneal Cavity: There is mild infiltration in the root of the mesentery. Mildly prominent lymph n odes are seen in the mesentery and the left periaortic region. Mildly enlarged lymph nodes are seen in the region of the celiac axis. No free air. Lymph Nodes: Please see the above section under peritoneal cavity. Bones: Within normal limits for the patient's age. Soft Tissues: Unremarkable. IMPRESSION: 1. 4.2 x 3.6 cm infrarenal abdominal aortic aneurysm. This appears stable. 2. There is mild stranding seen in the mesentery and mildly enlarged mesenteric lymph nodes. This ma y represent adenitis or panniculitis. This may also be seen with nonspecific enteritis. Neoplasm ca nnot be excluded. 3. Mild stranding around the pancreas. Please correlate with evidence to suggest acute pancreatitis. RADIATION DOSE DELIVERED: 591.97mGy.cm Total DLP 591.97mGy.cm Total DLP DATA REPOSITORY: All CT scans at this facility are submitted to the National Radiology Data Registry (NRDR) Dose Index Registry (DIR) with the [employer] (ACR). RADIATION OPTIMIZATION: All CT scans at this facility use at least one of these dose optimization te chniques: automated exposure control; mA and/or kV adjustment per patient size (includes targeted exa ms where dose is matched to clinical indication); or iterative reconstruction.
--- NOTE | 2023-05-15 12:57 | DI.VRAD_ITS ---
PROCEDURE INFORMATION: Exam: CTA Abdominal Aorta and Bilateral Lower Extremities (Run-off) With Contrast Exam date and time: 05/15/2023 11:18 AM Age: 62 years old Clinical indication: Abdominal pain; Acute; Patient HX: HX of aaa TECHNIQUE: Imaging protocol: Computed tomographic angiography of the of the abdominal aorta, pelvis and bilateral lower extremities with contrast. 3D rendering (Not supervised by radiologist): MIP and/or 3D reconstructed images were created by the technologist. Radiation optimization: All CT scans at this facility use at least one of these dose optimization techniques: automated exposure control; mA and/or kV adjustment per patient size (includes targeted exams where dose is matched to clinical indication); or iterative reconstruction. Contrast material: OMNIPAQUE 350; Contrast volume: 150 ml; Contrast route: INTRAVENOUS (IV); COMPARISON: CT THORAX ABD/PEL CTA 04/26/2023 2:50 PM FINDINGS: Aorta: The entire abdominal aorta was not included on this examination. The aneurysmal portion seen on the recent examination of 04/26/2023 is not excluded. There is soft, calcific plaque involving the infrarenal abdominal aorta.. Celiac trunk and mesenteric arteries: Not included at this field. Renal arteries: Not included at this field of view. Right iliac arteries: Plaque involving the right common iliac artery which is mildly ectatic measuring up to 17 mm. This was also previously noted. There is apparent soft plaque involving the common iliac artery also previously noted. There is calcific the the plaque involving the iliac bifurcation and scattered involving the internal, external iliac arteries which remain patent Right femoral/popliteal arteries: There is plaque involving the right common femoral artery, the femoral bifurcation. Pro from the artery identified. There is plaque involving the superficial femoral artery, and the popliteal artery in particular but they remain patent. Right infrapopliteal arteries: There is plaque involving the tibioperoneal trunk. The infrapopliteal vessels are small. The main blood supply to the foot is via the posterior tibial artery. The anterior tibial artery is not well visualized/opacified below the ankle although it is faintly visualized. The peroneal artery appears to occlude above the ankle. Left iliac arteries: Plaque but the left common, internal and external iliac arteries remain patent. Left femoral/popliteal arteries: Plaque involving the left common femoral artery and the femoral bifurcation which remains patent. Profunda origin identified. Plaque involving the distal left SFA and the popliteal artery.. Left infrapopliteal arteries: Plaque involving the left tibioperoneal trunk. The infra popliteal vessels are small. Main supply to the foot is the posterior tibial artery. Anterior tibial artery is faintly visualized/opacified below the level of the ankle. The peroneal artery appears to occlude above the ankle. Liver: Not included at this field of view. Gallbladder and bile ducts: Not included at this field of view the. Pancreas: Not included at this field. Spleen: Not included at this field of view. Adrenal glands: Not included the. Kidneys and ureters: Lower pole of the right kidney visualized. Left kidney not visualized. No ureteral dilatation.. Stomach and bowel: Evaluation is limited. The non-opacified loops of bowel are unremarkable. There is no evidence of bowel obstruction. There is no discrete mass.. Appendix: No evidence of appendicitis. Urinary bladder: The bladder is nondistended. No bladder mass visualized. The mild bladder wall thickening could be due to lack of distension. Reproductive: Right-sided scrotal hydrocele. Trace fluid left hemiscrotum. Prostate gland, seminal vesicles are unchanged.. Intraperitoneal space: No free intraperitoneal air. There is some nonspecific hazy stranding in the mesenteric fat which was also previously noted.. Lymph nodes: No new or progressive lymphadenopathy. Bones/joints: No acute bony abnormality identified. Findings consistent with lumbar spondylosis, degenerative disc disease. No new findings.. Soft tissues: Unremarkable. IMPRESSION: The upper abdominal aorta, upper abdomen were not included on this exam. There is soft, calcific plaque in the infrarenal abdominal aorta, iliac arteries also previously identified. There is atherosclerotic disease involving the femoral, popliteal and the infrapopliteal arteries bilaterally. Main runoff to both feet is via the posterior tibial artery as described. Right-sided hydrocele also previously noted. No new findings identified in the visualized soft tissues of the abdomen, pelvis. Dictated and Authenticated by: Karen Payne MD. Ordering:JEANNE Lan MD
--- NOTE | 2023-05-15 13:11 | DI.VRAD_ITS ---
PROCEDURE INFORMATION: Exam: CTA Abdomen and Pelvis With Contrast Exam date and time: 05/15/2023 11:51 AM Age: 62 years old Clinical indication: Abdominal pain; Acute TECHNIQUE: Imaging protocol: Computed tomographic angiography of the abdomen and pelvis with contrast. Exam focused on the arteries. 3D rendering (Not supervised by radiologist): MIP and/or 3D reconstructed images were created by the technologist. Radiation optimization: All CT scans at this facility use at least one of these dose optimization techniques: automated exposure control; mA and/or kV adjustment per patient size (includes targeted exams where dose is matched to clinical indication); or iterative reconstruction. Contrast material: OMNIPAQUE 350; Contrast volume: 50 ml; Contrast route: INTRAVENOUS (IV); COMPARISON: CT THORAX ABD/PEL CTA 04/26/2023 2:50 PM CTA lower abdomen, pelvis with runoff dictated separately FINDINGS: Aorta: There is aneurysmal enlargement of the infrarenal abdominal aorta. It measures approximately 3.9 cm in its maximum AP diameter as measured on sagittal reformatted image 67, series 9. It measures approximately 3.9 cm in maximum coronal diameter as measured on series 8, image 44. There is calcific plaque involving the aorta and prominent soft plaque anteriorly and to the left at the level of the abdominal aortic aneurysm.. Celiac trunk and mesenteric arteries: There is plaque, mild narrowing at the celiac artery origin. There is also plaque at the SMA origin which is patent. Inferior mesenteric artery is visualized. Renal arteries: There is plaque involving the renal artery origins bilaterally. They are both patent. There are apparent solitary renal artery origins bilaterally. Right iliac arteries: Plaque involving the right common carotid artery, both soft, calcific plaque is noted and it is mildly ectatic up to 17 mm as described on CTA runoff.. Left iliac arteries: Plaque but the iliac arteries are patent. Liver: Fatty infiltration of the liver. No discrete mass.. Gallbladder and bile ducts: No calcified gallstones. No gallbladder wall thickening. No significant biliary ductal dilatation identified. Pancreas: No discrete pancreatic mass. The there is however subtle peripancreatic inflammation and trace fluid. There is stranding in the mesenteric fat inferior to the pancreas. Correlate clinically for the presence of acute pancreatitis. Pancreatic duct is nondistended.. Spleen: Unremarkable. No splenomegaly. Adrenal glands: Mild left adrenal thickening. No new findings.. Kidneys and ureters: Small cyst posteriorly on the right. No solid renal cortical mass. No evidence of hydronephrosis. No new findings. Stomach and bowel: Evaluation of the bowel is limited in the absence of oral contrast. No specific evidence of bowel obstruction. No discrete mass. Appendix: No findings to suggest acute appendicitis. Intraperitoneal space: No free air. No discrete fluid collection. There is however stranding noted in the central mesenteric fat adjacent to the mesenteric vessels. This was also previously noted. There are small mesenteric lymph nodes also noted. Lymph nodes: Small mesenteric nodes. Small retroperitoneal/periaortic nodes which were also previously noted. Urinary bladder: Not included at this field of view. Reproductive: Not included at this field of view Bones/joints: Degenerative changes in the spine. No acute fracture. Soft tissues: No significant subcutaneous abnormality. Lung bases: There is interstitial and alveolar airspace disease at the lung bases which was also seen on the patient's prior CT from 04/26/2023. IMPRESSION: There is stranding noted within the mesenteric fat as well as multiple small mesenteric nodes. There is mild stranding, fluid also seen in the peripancreatic fat. Correlate clinically to exclude the possibility of acute pancreatitis. The findings are nonspecific, findings could be related to mesenteric panniculitis. Also within the differential diagnosis is malignancy including lymphoma. Clinical correlation, follow-up recommended. Infrarenal abdominal aortic aneurysm is stable in appearance when compared to the the the the the the the recent CT of the abdomen and pelvis from 04/26/2023. Dictated and Authenticated by: Karen Payne MD. Ordering:JEANNE Lan MD
[2023-05-15] MEDS: Ondansetron O.D.T. 4 MG TABEF, 3 TABS/BTL PO (13:46)
== END 2023-05-15 13:59 | disposition home or self-care (01) ==
PROVIDERS: Emergency Provider Registered Nurse Emergency; PCP Physician Assistant Medical
DX: K85.20 Alcohol induced acute pancreatitis without necrosis or infection (principal)
CPT/HCPCS: 36415; 74175; 75635; 80053; 83690; 93005; 96361; 96374; 96375; 99285; 81003; 81015; 83735; 84484; 85025; 93010; 99284; J1170; J2405; J3490; Q9967

== ENCOUNTER 2023-06-10 18:26 | Outpatient (REF) | payer MEDICAID, SELFPAY ==
[2023-06-10 19:24] LABS: Abs Immature Grans 0.06 10^3/uL (0.0-0.06); Absolute Basophil Count 0.08 10^3/uL (0.0-0.2); Absolute Eosinophil Count 0.35 10^3/uL (0.0-0.7); Absolute Lymphocyte Count 1.06 10^3/uL (1.2-3.4); Absolute Monocyte Count 0.94 10^3/uL (0.1-0.8); Basophils % 0.8; Eosinophils % 3.3; HCT 35.4 % (40.0-50.0); HGB 11.2 g/dL (13.5-17.5); Immature Grans % 0.6; Lymphocytes % 10.1; MCH 30.3 pg (27.0-33.0); MCHC 31.6 % (32.0-36.0); MCV 96 fL (80-95); MPV 9.9 fL (8.0-11.0); Neutrophils % 76.2; Platelet Count 503 10^3/uL (130-400); RDW 13.6 % (11.8-14.1); RDW-SD 48.4 fL; WBC 10.49 10^3/uL (4.4-10.8)
[2023-06-11 16:57] LABS: ALT 151 U/L (16-63); AST 94 U/L (15-37); Alkaline Phosphatase 324 U/L (46-116); Anion Gap 11.1 mmol/L (3-11); BUN 17 mg/dL (7-18); Bilirubin, Total 1.8 mg/dL (0.2-1.0); CO2 27.9 mmol/L (21.0-32.0); Chloride 101 mmol/L (98-107); Glucose 169 mg/dL (74-106); Potassium 4.6 mmol/L (3.5-5.1); Sodium 140 mmol/L (136-145)
[2023-06-11 17:03] LABS: Estimated GFR 84.57 (mL/min/1.73m2)
[2023-06-11 17:29] LABS: Albumin 1.9 g/dL (3.4-5.0); Calcium 8.5 mg/dL (8.5-10.1); Total Protein 5.6 g/dL (6.4-8.2)
[2023-06-14 17:29] LABS: CA 19-9 68 U/mL (<35)
== END 2023-06-10 18:27 | disposition home or self-care (01) ==
LOC: LBN 18:26
PROVIDERS: PCP Physician Assistant Medical; Visit Provider Internal Medicine Hematology & Oncology
DX: C25.9 Malignant neoplasm of pancreas, unspecified (principal); C78.00 Secondary malignant neoplasm of unspecified lung
CPT/HCPCS: 80053; 85025; 86301

== ENCOUNTER 2023-06-17 23:09 | Inpatient (IN) | payer OTHER, SELFPAY ==
--- NOTE | 2023-06-17 23:12 | W.PM.HP.N ---
Date of service: 06/17/23 Time of Service: 23:12 Assessment and Plan Assessment and plan (1) Pancreatic cancer: Status: Acute Assessment and plan: New Diagnosis, progressing quickly. (2) Dyspnea: Status: Acute Assessment and plan: Intermittent, with increased respiratory secretions. Appears to breathing comfortably at rest. (3) Abdominal discomfort: Status: Acute Assessment and plan: Continue Hydromorphone pump, titrate as needed. (4) Early satiety: Status: Acute Assessment and plan: Unable to take PO. (5) Anxiety: Status: Chronic Assessment and plan: Likely contributing to the dyspnea. Ativan PRN. (6) Physician orders for life-sustaining treatment (POLST) form indicates patient wish for [id number]-hbkjoqjvrnb status: Status: Acute (7) COPD (chronic obstructive pulmonary disease): Assessment and plan: Underlying. (8) Hospice care patient: Status: Acute Assessment and plan: Tristan Yan is a 62 year old man with the unfortunate recent diagnosis of metastatic pancreatic cancer. He was admitted to hospice service at home 3 days ago. He was initiated on a SC hydromorphone CADD pump yesterday. He was minimally responsive today but was able to verbalize that his pain was controlled. He has had intermittent episodes of respiratory distress at home. Initially, we tried titrating PO lasix doses but he did not have significant urinary output with that. Scop patches were ordered today. He's been restless, agitated, with terminal delirium. His breathing has not responded to intermittent dosing with morphine for respiratory distress. He has what appears to be acsites but too ill/restless to undergo parencentesis at this time. Multiple causes for his breathlessness. Goal of this admission is to get his breathing under better control, though given the widespread nature of his metastatic cancer, he could within the next few hours to days. Family is aware. Continue hydromorphone pump, currently at 3 mg/hr with bolus of 1.5 mg q15m PRN. Titrate as needed. Consider further diuresis PRN. Hospice team to follow while in patient. History of Present Illness Narrative: Tristan Yan is a 62 year old man with recent Dx of metastatic pancreatic cancer. He initially presented to the ED in 04/2023 and was admitted and treated for pancreatitis. He went on to represent 05/17/2023 with worsening abdominal pain, N/V, poor PO intake for approximately the last month, worsening over a few days prior. He also reported weight loss. He was admitted to [facility] from 05/17-06/03/23 and was treated again for pancreatitis until MRCP showed concern for pancreatic head mass, peripancreatic and paraceliac/twyla hepatis adenopathy. EBUS w/ biopsies from multiple lymphnode stations showed adenocarcinoma. On 06/02 an upper EUS and ERCP showed pancreatic head mass with bx showing adenocarcinoma as well. During this procedure, a mass was also noted in the gastric cardia with Bx similar to the pancreatic mass but with some differences, raising the possibility of a separate primary. . He met with Dr. Wilson on 06/11 to discuss options. The option of hospice was presented at that time. He went on to have increasing pain and SOB, possibly r/t malignant (?) pleural effusions (L>R), in the setting of underlying COPD. He decided to forego treatment and was admitted to hospice on 06/14. Since he was admitted, his symptoms have been somewhat difficult to manage at home. Admission for Hospice Sx management has been considered over the last 2 days. He was initiated on a CADD pump yesterday (06/16) and currently has hydromophone subcutaneous running at 3 mg/hr with bolus of 1.5 mg q 15min PRN. He has had intermittent episodes of SOB, which happened again at home tonight. He went from a sleeping state to sitting up and yelling for help. His family reached out to Hospice and felt that he could no longer be managed at home. He is now admitted to hospice Sx management. He has not had anything to eat for 2 days. He was minimally responsive today except when he was having episodes of SOB/respiratory distress. Review of Systems Narrative: unable PFSH All Active Problems (Updated 06/17/23 @ 23:39 by Savannah Turk NP) Physician orders for life-sustaining treatment (POLST) form indicates patient wish for nm-ihi-pgtancrevcg status (Acute) Hospice care patient (Acute) Encounter for hospice care discussion (Acute) Neuropathy (Acute) Constipation (Acute) Anxiety (Chronic) Sleep pattern disturbance (Acute) Early satiety (Acute) Abdominal discomfort (Acute) Dyspnea (Acute) ACP (advance care planning) (Acute) Cancer related pain (Acute) Need for home health care (Acute) Pancreatic cancer (Acute) Metastatic Diarrhea (Acute) Hyperkalemia (Acute) Acute kidney injury (Acute) Tubular adenoma of colon (Acute) Encounter for screening colonoscopy (Acute) Medical History AAA (abdominal aortic aneurysm) recent US- 3.3 cm infrarenal Chronic rhinitis COPD (chronic obstructive pulmonary disease) Cough Elevated LFTs ETOH abuse Family history of substance abuse Hyperlipidemia Hypertension Impaired fasting glucose Lyme disease Medial epicondylitis of right elbow Shoulder pain, bilateral Surgical History S/P colonoscopy (~2009) S/P left knee arthroscopy Social History Smoking/Tobacco Use Status: Former Tobacco Use Quit Date: 11/15/12 Smoking risk assessment performed?: Yes Alcohol Intake: current Alcohol Intake frequency: 3 or more drinks per day Alcohol type: hard liquor Counseling given: Yes Counseling provided: provider counseling Substance use type: does not use Details: alcohol: t-2, 3 drinks Housing: house Do you feel safe at home: Yes Do you feel safe in your relationship?: Yes Meds Allergies and Home Medications Allergies Allergy/AdvReac Type Severity Reaction Status Date / Time No Known Allergies Allergy Verified 05/15/23 10:29 Home Medications Medication Instructions Recorded Confirmed Type albuterol sulfate 90 mcg/actuation 2 inh inhalation Q6H 09/06/20 06/14/23 History breath activated powder inhaler,sensor (Proair Digihaler) metoprolol succinate 50 mg 50 mg PO DAILY 09/06/20 06/14/23 History tablet,extended release 24 hr naloxone 4 mg/actuation nasal 4 mg intranasal Q2M PRN 09/06/20 06/14/23 History spray (Narcan) albuterol sulfate 90 mcg/actuation 2 puff inhalation Q6H PRN 06/08/23 06/14/23 History aerosol inhaler (ProAir HFA) budesonide-formoterol HFA 160 2 puff inhalation BID 06/08/23 06/14/23 History mcg-4.5 mcg/actuation aerosol inhaler (Symbicort) folic acid 1 mg tablet 1 mg PO DAILY 06/08/23 06/14/23 History gabapentin 600 mg tablet 1,200 mg PO QHS 06/08/23 06/14/23 History uqwccj-qjosdnxi-lgvguuo 1 cap PO TID 06/08/23 06/14/23 History 6,000-19,000-30,000 unit capsule,delayed rel lorazepam 0.5 mg tablet 0.5 mg PO DAILY PRN 06/08/23 06/14/23 History ondansetron 4 mg disintegrating 4 mg PO Q8H 06/08/23 06/14/23 History tablet pantoprazole 40 mg tablet,delayed 40 mg PO DAILY 06/08/23 06/14/23 History release (Protonix) polyethylene glycol 3350 17 17 g PO DAILY 06/08/23 06/14/23 History gram/dose oral powder (Miralax) sennosides 8.6 mg-docusate sodium 3 tab-cap PO BID 06/08/23 06/14/23 History 50 mg tablet (Senna Plus) thiamine HCl (vitamin B1) 100 mg 100 mg PO DAILY 06/08/23 06/14/23 History tablet trazodone 50 mg tablet 50 mg PO QHS PRN 06/08/23 06/14/23 History bisacodyl 10 mg rectal suppository 10 mg CO DAILY PRN constipation 06/09/23 06/14/23 Rx (Dulcolax (bisacodyl)) #50 ea hydromorphone 2 mg tablet 2 - 8 mg PO .q3-4h PRN pain 06/09/23 06/14/23 History hydromorphone 2 mg tablet 2 - 8 mg PO .q3-4h PRN pain #180 06/09/23 06/14/23 Rx tabs mirtazapine 7.5 mg tablet 7.5 mg PO QHS #30 tabs 06/09/23 06/14/23 Rx fentanyl 12 mcg/hr transdermal 1 patch transdermal Q72H #5 ea 06/14/23 06/14/23 Rx patch fentanyl 25 mcg/hr transdermal 1 patch transdermal Q72H #10 ea 06/14/23 06/14/23 Rx patch furosemide 20 mg tablet 20 mg PO DAILY PRN edema #10 tabs 06/14/23 06/14/23 Rx metoprolol succinate 25 mg 25 mg PO DAILY #14 tabs 06/14/23 06/14/23 Rx tablet,extended release 24 hr morphine concentrate 100 mg/5 mL 5 - 20 mg (0.25 - 1 mL) PO Q1-4H 06/14/23 06/14/23 Rx (20 mg/mL) oral solution PRN pain #30 mL simethicone 80 mg chewable tablet 80 mg PO BID-QID PRN abdominal 06/14/23 06/14/23 Rx (Gas Relief 80 (simethicone)) distention #30 tabs hydromorphone 2 mg/mL injection 1 mg (0.5 mL) subcut Q1H pain #100 06/17/23 Rx solution mL Exam Narrative Exam Narrative: General: middle aged man, laying in bed, sleeping. Did not awaken to verbal or tactile stimuli. HEENT: normocephalic, atraumatic, eyes open, mm dry. Neck: supple. Cardiovascular: tachycardic. Respiratory: respirations appear unlabored at rest, occasional weak cough, increased respiratory secretions. GI: softly distended, +BS. Extremities: no edema. Time Spent Time spent with Patient: >75 minutes Time was spent: preparing to see the patient(eg.review tests), obtaining and/or reviewing separately otained hiistory, ordering medications,tests, procedures, referring, communicating with other health nursing care partner, counseling the patient (and family) and care coordination
[2023-06-17 23:40] VITALS: BP 92/62; PULSE 108; RESP 22; TEMP 37.1; O2SAT 93
[2023-06-18] MEDS: Scopolamine 1 MG/3 DAYS PATCH TD (00:09)
[2023-06-18] MEDS: LORazepam 2 MG/ML VIAL IV/SC ×7 (01:39→16:45)
[2023-06-18] MEDS: Glycopyrrolate 0.2 MG/1 ML VIAL IVP ×4 (02:02→14:29)
--- NOTE | 2023-06-18 08:42 | W.PM.PROGNOT ---
Date of Service Date of service: 06/18/23 Time of Service: 08:42 Assessment and Plan Assessment and plan (1) Pancreatic cancer: Status: Acute Assessment and plan: New Diagnosis, progressing rapidly. (2) Dyspnea: Status: Acute Assessment and plan: Intermittent, with increased respiratory secretions. Appears to breathing comfortably at rest. Trial Lasix x1 dose in the setting of known pleural effusions. (3) Abdominal discomfort: Status: Acute Assessment and plan: Continue Hydromorphone pump, titrate as needed. (4) Early satiety: Status: Acute Assessment and plan: Unable to take PO. (5) Anxiety: Status: Chronic Assessment and plan: Likely contributing to the dyspnea. Ativan PRN. (6) Physician orders for life-sustaining treatment (POLST) form indicates patient wish for rq-lxe-[id number] status: Status: Acute (7) COPD (chronic obstructive pulmonary disease): Assessment and plan: Underlying. (8) Hospice care patient: Status: Acute Assessment and plan: Tristan Yan is a 62 year old man with the unfortunate recent diagnosis of metastatic pancreatic cancer. He was admitted to hospice service at home 3 days ago. He was initiated on a SC hydromorphone CADD pump yesterday. He was minimally responsive today but was able to verbalize that his pain was controlled. He has had intermittent episodes of respiratory distress at home. Initially, we tried titrating PO lasix doses but he did not have significant urinary output with that. Scop patches were ordered today. He is restless, agitated, not responding to haldol and lorazepam. Morphine was not helping his respiratory distress. Given this, decision was made to admit him to hospital for symptom management. Seems to be at least partially due to unfinished work around dying. Existential distress. [employer] has been consulted. Continue hydromorphone pump, currently at 3 mg/hr with bolus of 1.5 mg q15m PRN. Titrate as needed. Consider further diuresis PRN. Lasix IV x1 dose as above. Hospice team to follow while in patient. Subjective Subjective Interval history since last seen: Tristan was seen in his hospital room where he is on hospice symptom management. He has family at bedside. He appears to be comfortable. He did not wake up to verbal or tactile stimuli. He does not appear to be in distress, respiratory, pain or otherwise. His family reports that he had a better night after coming into the hospital and getting settled in. His daughter, Nabila's biggest concern is his respiratory secretions and concern for him not being able to manage them. Discussed the use of medications to attempt to dry up secretions. Exam Narrative Exam Narrative: General: middle aged man, laying in bed, sleeping. Did not awaken to verbal or tactile stimuli. HEENT: normocephalic, atraumatic, eyes closed, mm dry. Neck: supple. Cardiovascular: tachycardic. Respiratory: respirations appear unlabored at rest, occasional weak cough, increased respiratory secretions. GI: softly distended, +BS. Extremities: no edema. Objective Last Vital Signs Temp 37.1 C 06/17/23 23:40 Pulse 108 H 06/17/23 23:40 Resp 22 06/17/23 23:40 BP 92/62 L 06/17/23 23:40 Pulse Ox 93 06/17/23 23:40 Time Spent with Patient Time Spent with Patient: >50 minutes Time was spent: preparing to see the patient(eg.review tests), obtaining and/or reviewing separately otained hiistory, ordering medications,tests, procedures, referring, communicating with other health child care education coordinator, counseling the patient and care coordination
[2023-06-18] MEDS: Furosemide 40 MG/4 ML VIAL IVP (09:51)
--- NOTE | 2023-06-18 10:33 | PDOC.CMPRO ---
Date of service: 06/18/23 Time of Service: 10:33 Care Management Progress Note Progress Note Text Progress Note Text: S/O: Tristan appeared to be resting comfortably when CM met with him. His daughter was in the room visiting, and stated that he is much more comfortable here than he was at home. Savannah, Hospice, visited earlier and reported that he will remain at [facility] for end of life care. CM offered support, as needed, during this difficult time for Tristan and his family. CM will continue to follow. A: Tristan is a 62 year old male admitted to [facility] on 06/17/23 for pancreatic cancer, dyspnea. P: Tristan will remain at [facility] on hospice symptom management, for end of life care. Hospice will visit daily to assess for needs. CM will continue to support Tristan and his family during this difficult time.
--- NOTE | 2023-06-18 16:39 | PHA.REVIEW2 ---
Pharmacy Admission Review Admission Clinical Review Admission Pharmacy Review: (Updated 06/17/23 @ 23:39 by Savannah Turk NP) Physician orders for life-sustaining treatment (POLST) form indicates patient wish for [id number]-[id number] status (Acute) Hospice care patient (Acute) Early satiety (Acute) Abdominal discomfort (Acute) Dyspnea (Acute) Pancreatic cancer (Acute) No Known Allergies Allergy (Verified 05/15/23 10:29) Resuscitation Status DNR/DNI Height 6 ft Weight 175 kg Comments Comments/Follow Ups: Hospice symptom management. Watch for med changes. Pharmacy Admission Review Renal Dosing Medications needing adjustments: N/A (SCr from May) Anticoagulation DVT Prophylaxis: N/A Therapeutic Anticoagulation: N/A Opiate Usage Evaluate Pain Scale/Pains Meds: Reviewed Scheduled Bowel Reg ordered if on Opiates?: No (has PRN meds ordered) Relevant Labs Electrolytes, C-Reactive P, ESR: N/A DM Control DM Control: N/A Cardiac Review BP, HR, EF%: N/A QTc Review QTc: N/A IV to PO Switch IV Medications: Reviewed Home Meds Home Med List reviewed: N/A Current Meds Current Medication Order Review: Reviewed Comments Comments/Follow Ups: Hospice symptom management. Watch for med changes.
[2023-06-18] MEDS: Atropine 1% Ophth Sol. 2 ML BTL SL (16:46)
== END 2023-06-18 18:05 | disposition expired | DRG 436 ==
PROVIDERS: Admitting Provider Family Medicine; PCP Physician Assistant Medical; Visit Provider Family Medicine
DX: C25.0 Malignant neoplasm of head of pancreas (principal); C16.0 Malignant neoplasm of cardia; C77.2 Secondary and unspecified malignant neoplasm of intra-abdominal lymph nodes; Z68.43 Body mass index [BMI] 50.0-59.9, adult; J91.0 Malignant pleural effusion; N17.9 Acute kidney failure, unspecified; Z51.5 Encounter for palliative care; F41.9 Anxiety disorder, unspecified; J44.9 Chronic obstructive pulmonary disease, unspecified; R68.81 Early satiety; R10.9 Unspecified abdominal pain; R63.4 Abnormal weight loss; G62.9 Polyneuropathy, unspecified; R06.02 Shortness of breath; G89.3 Neoplasm related pain (acute) (chronic); E87.5 Hyperkalemia; I71.43 Infrarenal abdominal aortic aneurysm, without rupture; Z87.891 Personal history of nicotine dependence; F10.10 Alcohol abuse, uncomplicated; E78.5 Hyperlipidemia, unspecified; I10 Essential (primary) hypertension; R73.01 Impaired fasting glucose; M25.512 Pain in left shoulder; M25.511 Pain in right shoulder
CPT/HCPCS: J1940; J2060